=== PATIENT | male | born 1965 | race Hispanic/Latino ===

== ENCOUNTER 2018-06-17 22:16 | Observation (INO) | payer BC, OTHER ==
[2018-06-17 23:11] LABS: Hemoglobin 13.8 g/dL (14.0-18.0); Mean Corpuscular HGB CONC 34.1 g/dL (32.0-36.0); Mean Corpuscular Hemoglobin 32.5 pg (27.0-31.0); Mean Corpuscular Volume 95.2 fL (78.0-98.0); Mean Platelet Volume 7.9 fL (7.4-10.4); Platelet Count 237 thou/uL (130-400); RBC Distribution Width 13.6 % (11.5-14.5); Red Blood Cell (RBC) Count 4.25 mill/uL (4.70-6.10)
[2018-06-17 23:27] LABS: Band 1 % (5-11); Lymphocytes 49 % (21-51); MDiff Complete? YES; Monocytes 3 % (0-10); Neutrophil 47 % (42-75); PLT Morphology Comment Appears Adequate; RBC Morphology Normal
[2018-06-17 23:42] LABS: CKMB 1.6 ng/mL (0-6.6); Troponin I 0.027 ng/mL (< 0.028)
[2018-06-18 00:06] LABS: Albumin 3.9 g/dL (3.5-5.0)
[2018-06-18 00:08] LABS: Calcium 9.3 mg/dL (7.8-10.44); Chloride 103 mmol/L (98-107); Potassium 3.5 mmol/L (3.5-5.1); Sodium 138 mmol/L (136-145)
[2018-06-18 00:09] LABS: Globulin 2.7 g/dL (2.4-3.5); Glucose 147 mg/dL (70-105); Protein, Total 6.6 g/dL (6.0-8.3)
[2018-06-18 00:10] LABS: Anion Gap 7 mmol/L (10-20); Carbon Dioxide 32 mmol/L (22-29)
[2018-06-18 00:11] LABS: Bilirubin, Total 0.6 mg/dL (0.2-1.2)
[2018-06-18 00:12] LABS: Alkaline Phosphatase 80 U/L (40-150); Calc. Creatinine Clearance 0 mL/min (70-130); Estimated GFR-MDRD 67
[2018-06-18 00:13] LABS: BUN (Urea Nitrogen) 25 mg/dL (8.4-25.7)
[2018-06-18 00:14] LABS: AST (SGOT) 12 U/L (5-34)
[2018-06-18 00:15] LABS: ALT (SGPT) 12 U/L (8-55); CK (CPK) 66 U/L (30-200); Lipase 62 U/L (8-78)
--- NOTE | 2018-06-18 00:21 | RAD ---
CHEST ONE VIEW: INDICATIONS: Hypertension. COMPARISON: 08/16/2014 FINDINGS: There is stable cardiomegaly. The lungs are clear. No pleural effusion or pneumothorax is evident. No acute osseous abnormality is evident. IMPRESSION: Stable cardiomegaly. POS: FABIOLA
[2018-06-18 02:39] LABS: Troponin I 0.034 ng/mL (< 0.028)
[2018-06-18] MEDS ORDERED: Ondansetron ODT 4 MG TAB SL PRN (02:48)
[2018-06-18] MEDS ORDERED: Ondansetron PF 4 MG/2 ML Vial IVP PRN ×2 (02:48→07:53)
[2018-06-18 04:08] VITALS: BMI 34.9
[2018-06-18] MEDS: Sodium Chloride 0.9% 1,000 ML IV SCH ×2 (04:47→16:32)
[2018-06-18 05:44] LABS: Troponin I 0.036 ng/mL (< 0.028)
[2018-06-18] MEDS ORDERED: Nitroglycerin 0.4 MG TAB (25 Tab Bottle) PO PRN (07:53)
[2018-06-18] MEDS ORDERED: hydrALAZINE 20 MG/ML VIAL SLOW IVP PRN (07:53)
[2018-06-18] MEDS ORDERED: Ondansetron ODT 4 MG TAB PO PRN (07:53)
[2018-06-18] MEDS ORDERED: Aspirin 325 mg Enteric Coated Tablet PO SCH (09:00)
[2018-06-18] MEDS: Amlodipine 5 MG TAB PO SCH (09:08)
[2018-06-18] MEDS: Aspirin 325 MG TAB PO SCH (09:08)
[2018-06-18] MEDS: Azithromycin 250 MG TAB PO SCH (09:09)
[2018-06-18] MEDS: Neomycin/Polymyxin/HC Otic Solution 10 ML BOT R EAR SCH ×3 (09:09→22:25)
[2018-06-18] MEDS: Atorvastatin Calcium 40 MG TAB PO SCH (09:09)
--- NOTE | 2018-06-18 09:14 | HP ---
PRIMARY CARE PHYSICIAN: Dr. Turner. CHIEF COMPLAINT: Chest pain. HISTORY OF PRESENT ILLNESS: Mr. Carlson is a pleasant 53-year-old gentleman that has a history of h ypertension and hypothyroidism. He also has a history of morbid obesity, and he says that he has los t about 100 or so pounds. He had been weighing about 390 and is now down to 250. He says that he jin d been on blood pressure medication when he was heavier, and says that since then he had been taken o ff of antihypertensives. He says, however, in the last couple of days he has noted some chest pain. He says that it was on the left side of his chest. It was nonradiating, it was sharp, and was mild about 2-3/10. He says that he checked his blood pressure during the time he was having the chest daiana n and noticed that his blood pressure was approximately 190/100, and as previously mentioned, he is n ot on blood pressure medicine currently. He had an episode last night that has concerned him. It jin ppened again while he was talking to his in the same location. There were no associated symptom s such as nausea, vomiting, or diaphoresis. He did notice that he felt like his heart was racing ernie or to this episode. He called EMS and they did note that his blood pressure was once again elevated and he was brought to the emergency room for further evaluation. Currently, the patient is chest daiana n free and does not feel any distress. When he was checked into the emergency room, his blood pressu re was 188/102. The patient denies any leg swelling. He denies any PND, no orthopnea. He says that he works where he does quite a bit of walking and has not had any difficulty with that. REVIEW OF SYSTEMS: All systems were reviewed and are negative except for that mentioned in the histo ry of present illness. PAST MEDICAL HISTORY: Significant for hypertension, hypothyroidism, and hyperlipidemia. PAST SURGICAL HISTORY: He has had a tonsillectomy as well as brain surgery and left knee surgery. ALLERGIES: No known drug allergies. SOCIAL HISTORY: He is . He has 3 sons. He is a nonsmoker and nondrinker. FAMILY HISTORY: Significant for his grandfather had a heart attack. MEDICATIONS: Include levothyroxine 100 mcg daily, aspirin 81 mg daily, and azithromycin or Z-Sreedhar, an d Lipitor 40 mg daily. PHYSICAL EXAMINATION: GENERAL: He is alert and oriented. He appears to be in no acute distress. He is well-developed and well-nourished. VITAL SIGNS: Blood pressure was 188/102. His heart rate is actually 59, respiratory rate is 18, tem perature is 97.6, O2 sat was 100% on room air. HEENT: His pupils are equal, round, and reactive. Extraocular muscles are intact. His sclerae are anicteric. Throat: There is no erythema, no exudates. NECK: No adenopathy, no bruits. No increase in jugular venous distention. LUNGS: Clear to auscultation. There is no wheezing, no rales, no rhonchi. CARDIOVASCULAR: He had a normal S1 and S2. I did not appreciate an S3 or S4. No murmurs, no clicks , no rubs, no gallops. ABDOMEN: Obese, it is soft, it is nontender, nondistended. Positive for bowel sounds. There was no rebound, no guarding, and no organomegaly. EXTREMITIES: There was no edema. No calf tenderness. There were no joint effusions and unusually h e is actually hairless on his lower extremities; however, he does have palpable dorsalis pedis pulses . NEUROLOGIC: His muscle strength is intact as well as cranial nerves II-XII are intact. SKIN AND INTEGUMENT: There are no skin changes. No rash, but again he is hairless. LABORATORY VALUES: On his EKG, and this is by my reading, is a sinus bradycardia. There are some vo ltage criteria for LVH. On his chest x-ray, there was some mild cardiomegaly, otherwise it is okay. LABORATORY RESULTS: White blood cell count 16, hemoglobin 13.8, hematocrit is 40.5, platelet count w as 237. Sodium was 138, potassium 3.5, chloride was 103, CO2 was 32, BUN of 25, creatinine 1.14, glu cose is 147. He had a lipase of 62. His troponin was 0.034. TSH was 7.35 and free T4 was 0.62. Al so, on his chest x-ray, he had some mild cardiomegaly. There was no evidence of any airspace disease and no effusion. This is by my reading as well. ASSESSMENT AND PLAN: This is a pleasant 53-year-old gentleman that presents to the emergency room wi th some atypical chest pain. He is also noted to have an extremely elevated blood pressure at home. He had noted it was 190 systolic. In the emergency room, it was 188/102. This is likely the etiolo gy of his chest pain. He is likely having some evidence of hypertensive urgency. In review of the suzy lauri's records, he was here in 2013, and at that time, he had had some similar complaints and had h ad a stress test as well as an echocardiogram. The stress test was negative and his echo showed a no rmal ejection fraction and he did have some mild left ventricular hypertrophy. Given that it has bee n over 4 years, we will go ahead and place him on observation for evaluation. Therefore for: 1. Chest pain, I suspect this is due to hypertensive urgency. However, we will go ahead and continu e to trend his cardiac enzymes and get a nuclear stress test as well as a lipid panel to further asse ss his risk for coronary artery disease. 2. Hypertensive urgency, we will need to start him on antihypertensive medications. I have already stressed that he will need to follow up with his primary care physician and get this checked and medi cations adjusted as needed. 3. Hypothyroidism. He admits that he has not been taking his levothyroxine regularly. His TSH is e levated and free T4 is low. We will go ahead and restart him on his levothyroxine.
[2018-06-18] MEDS: Nitroglycerin 2% Ointment 1 INCH/1 GM Packet TOP SCH ×2 (15:06→22:27)
--- NOTE | 2018-06-18 15:54 | NM ---
MYOCARDIAL PERFUSION EVALUATION: INDICATION: History of chest pain. RADIOPHARMACEUTICAL: 29.7 mCi Technetium 99m sestamibi IV with stress and 10.10 mCi Technetium 99m sestamibi IV with rest. COMPARISON: Prior exam dated 08/15/2014. FINDINGS: When comparing the rest and stress images, no definite reversible myocardial ischemia is demonstrated . There is prominent left ventricular dilatation seen on both the rest and stress images. There is diminished LVEF of 42%, which has declined from the prior in 2013 where it was 65%. There is normal w all thickening with diffuse hypokinesis. IMPRESSION: 1. No scintigraphic evidence to suggest reversible myocardial ischemia. 2. Worsening left ventricular dilatation with diminished left ventricular ejection fraction when com pared to the prior in 2013. The estimated left ventricular ejection fraction is now 42%. 3. Wall thickening appeared within normal limits. There was diffuse hypokinesis involving the left ventricle. POS: AUSTEN
[2018-06-18] MEDS: Mometasone 200 MCG HFA INHALER INH SCH (18:55)
[2018-06-19] MEDS: Levothyroxine Sodium 100 MCG TAB PO SCH (04:35)
[2018-06-19] MEDS: Nitroglycerin 2% Ointment 1 INCH/1 GM Packet TOP SCH ×2 (06:27→15:29)
--- NOTE | 2018-06-19 08:41 | PDOC.PN ---
- Subjective Encounter Start Date: 06/19/18 Encounter Start Time: 08:39 Mr. Carlson was seen today in follow-up of chest pain. He does not have any complaints today. He denies shortness of breath. - Objective Resuscitation Status: Resuscitation Status FULL:Full Resuscitation MAR Reviewed: Yes Vital Signs & Weight: Vital Signs (12 hours) Temp Pulse Resp BP BP Pulse Ox 06/19/18 07:13 97.9 F 51 L 20 167/82 H 98 06/19/18 04:34 97.5 F L 49 L 12 161/87 H 95 06/19/18 00:28 54 L 144/82 H 06/18/18 23:19 99.1 F 53 L 20 173/83 H 95 Weight Weight 250 lb 12.8 oz I&O: 06/18/18 06/19/18 06/20/18 06:59 06:59 06:59 Intake Total 122 480 Output Total 0 650 Balance 122 -170 Result Diagrams: 06/17/18 22:59 06/17/18 23:44 Phys Exam - Physical Examination HEENT: PERRLA Respiratory: no wheezing, no rales, no rhonchi, clear to auscultation bilateral Cardiovascular: RRR, no significant murmur, no rub + S4 Gastrointestinal: soft, non-tender, no distention, positive bowel sounds Musculoskeletal: no edema Dx/Plan (1) Chest pain Code(s): R07.9 - CHEST PAIN, UNSPECIFIED Status: Acute (2) Hypertensive urgency Code(s): I16.0 - HYPERTENSIVE URGENCY Status: Chronic (3) Acute systolic heart failure Code(s): I50.21 - ACUTE SYSTOLIC (CONGESTIVE) HEART FAILURE Status: Acute (4) Hypothyroidism Code(s): E03.9 - HYPOTHYROIDISM, UNSPECIFIED Status: Chronic - Plan * Chest Pain- likely due to Hypertensive Urgency * Hypertensive Urgency- blood pressure is still not controlled- will add Amlodipine * Acute systolic heart failure- this may be due to long-standing hypertension- but can not be sure he doesn't have ischemic heart disease- will consult Cardiology * Hypothyroidism- re-start Levothyroxin- He has been non-compliant
[2018-06-19] MEDS: Amlodipine 5 MG TAB PO SCH (08:51)
[2018-06-19] MEDS: Azithromycin 250 MG TAB PO SCH (08:51)
[2018-06-19] MEDS: Atorvastatin Calcium 40 MG TAB PO SCH (08:51)
[2018-06-19] MEDS: Aspirin 325 MG TAB PO SCH (08:51)
[2018-06-19] MEDS: Neomycin/Polymyxin/HC Otic Solution 10 ML BOT R EAR SCH ×3 (08:52→20:44)
[2018-06-19] MEDS: Acetaminophen 325 MG TAB PO PRN (08:55)
[2018-06-19] MEDS: Mometasone 200 MCG HFA INHALER INH SCH (19:42)
[2018-06-19] MEDS: Sacubitril 24.5 MG/Valsartan 25.5 MG TABLET PO SCH (20:43)
[2018-06-19] MEDS ORDERED: Atorvastatin Calcium 40 MG TAB PO SCH (21:00)
--- NOTE | 2018-06-19 23:02 | CON ---
DATE OF CONSULTATION: 06/19/2018 HISTORY: Edwin Carlson is a 53-year-old male that was evaluated in the hospital in October,. At that time, he did have sharp left-sided chest pain lasting 1-2 seconds. He underwent adenosine Cardiolite testing, which revealed no evidence of ischemia. There was suggestion of scarring of the apex and ejection fraction was 51%. I have not seen him since that time. In July 2014, he again underwent Lexiscan Cardiolite testing for shortness of breath and left arm numbness. This revealed no evidence of ischemia and an ejection fraction of 65%. Echocardiogram at that time also revealed ejection fraction of 50-55%. He had been on blood pressure medicines; however, he has lost weight from 390 down to about 250. Apparently 3 years ago, his blood pressure medicines were discontinued. He has not really watched his blood pressure since that time. Over the last 2 days, he has had left-sided chest discomfort. This sounds similar to what he had in 2007. It is located on the left side of his chest, very sharp stabbing pain lasting 1-2 seconds. Several minutes later would repeat and then 1 hour later, he had another 2 episodes. His blood pressure was high when he came to the emergency room, it was 190/100. Cardiac enzymes were unremarkable. He underwent Cardiolite testing, which revealed no evidence of ischemia or fixed defect; however, ejection fraction was 42% with diffuse hypokinesis. There was normal myocardial thickening. I ordered an echocardiogram; however, this has not been performed at this time. He does state that he has noted some exertional dyspnea and at one time on a trip, he had lower extremity edema. Also, over the past month, he has noted 2 episodes of PND where he would have to get up out of bed to catch his breath. PAST MEDICAL HISTORY: Hypertension, hypothyroidism, hyperlipidemia. OPERATIONS: Tonsillectomy. He also underwent resection of supposed pituitary tumor; however, in looking in the computer, there is no final pathology as it was sent out. The states that it was only found to be inflammation and not a tumor. He also has had left knee surgery. MEDICATIONS: Azithromycin 250 daily, aspirin 81 daily, atorvastatin 40 daily, Flovent 50 mcg t.i.d., Synthroid 100 mcg daily, Cortisporin otic solution t.i.d. ALLERGIES: None. SOCIAL HISTORY: Smoked 3 packs per day, but stopped 25 years ago. He drank more than a case of beer per day but stopped that 25 years ago. 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 FAMILY HISTORY: Negative for coronary artery disease in the immediate family. REVIEW OF SYSTEMS: Twelve-point review of systems otherwise unremarkable. PHYSICAL EXAMINATION: VITAL SIGNS: 148/74, pulse of 57. He has been bradycardic at times with heart rates in the low 50s and 49 on one occasion. HEENT: PERRL. NECK: Supple. CHEST: Clear. CARDIAC: S1 and S2 are normal without any S3, S4, or murmurs. ABDOMEN: Obese. Normal bowel sounds, no tenderness, no organomegaly. EXTREMITIES: Revealed no clubbing, cyanosis, or edema. NEUROLOGIC: Grossly intact. SKIN: Warm and dry. MUSCULOSKELETAL: Revealed no palpable chest wall tenderness. LABORATORY DATA: EKG revealed sinus bradycardia with rate of 54 per minute, right bundle branch block, evidence for left ventricular hypertrophy. Cardiolite findings as noted above. White count 16,000, hemoglobin 13.8, hematocrit 40.5, platelets 237,000. Sodium 138, potassium 3.5, chloride 103, carbon dioxide 32, BUN 25, creatinine 1.14. Troponin I 0.036. Cholesterol 142 , triglycerides 37, HDL 72, LDL 63. TSH is elevated at 7.3582. Free T4 is low at 0.62. IMPRESSION: 1. Atypical noncardiac chest pain. 2. No evidence of ischemia on Cardiolite testing. 3. Evidence of drop in ejection fraction, probably related to untreated hypertension for several years. This also may be the cause for his 2 episodes of PND, exertional dyspnea and one episode of leg edema. 4. Hypertension, untreated for 3 years. 5. Hypercholesterolemia, under good control. 6. Former smoker. 7. History of resection of a portion of pituitary, unknown pathology. PLAN: Echocardiogram will be performed to get a better assessment of his left ventricular function. Ideally, it would be best to place him on carvedilol; however, with his heart rate in the 40s and 50s, he probably would not tolerate that. Therefore, with his supposed left ventricular dysfunction, I would start him on Entresto 24.5/25.5 b.i.d. Once echo has been performed and his blood pressure is controlled, he may be discharged. [facility]OSPITALDavid
[2018-06-20] MEDS: Acetaminophen 325 MG TAB PO PRN (01:46)
[2018-06-20] MEDS ORDERED: Bisacodyl 5 MG TAB PO PRN (05:02)
[2018-06-20] MEDS: Levothyroxine Sodium 100 MCG TAB PO SCH (05:11)
[2018-06-20 08:06] VITALS: TEMP 97.6
[2018-06-20] MEDS ORDERED: Furosemide 20 MG TAB PO SCH (09:00)
[2018-06-20] MEDS: Azithromycin 250 MG TAB PO SCH (09:18)
[2018-06-20] MEDS: Aspirin 325 MG TAB PO SCH (09:18)
[2018-06-20] MEDS: Neomycin/Polymyxin/HC Otic Solution 10 ML BOT R EAR SCH (09:19)
[2018-06-20] MEDS: Sacubitril 24.5 MG/Valsartan 25.5 MG TABLET PO SCH (09:22)
[2018-06-20 10:52] VITALS: BP 104/62
--- NOTE | 2018-06-20 11:24 | PDOC.PN ---
- Subjective Encounter Start Date: 06/20/18 Encounter Start Time: 11:22 Mr. Carlson was seen today in follow-up of Hypertensive urgency. He is feeling better. He denies any chest pain and he is breathing better. - Objective Resuscitation Status: Resuscitation Status FULL:Full Resuscitation MAR Reviewed: Yes Vital Signs & Weight: Vital Signs (12 hours) Temp Pulse Resp BP BP BP Pulse Ox 06/20/18 10:51 73 115/77 104/62 06/20/18 10:50 58 L 18 113/74 06/20/18 08:00 97.6 F 43 L 20 153/79 H 95 06/20/18 04:07 97.5 F L 62 16 133/77 94 L 06/19/18 23:26 98.4 F 54 L 16 131/75 95 Weight Weight 237 lb 1.6 oz I&O: 06/19/18 06/20/18 06/21/18 06:59 06:59 06:59 Intake Total 480 1320 240 Output Total 650 3545 900 Balance -170 -1555 -660 Result Diagrams: 06/17/18 22:59 06/17/18 23:44 Phys Exam - Physical Examination HEENT: PERRLA Respiratory: no wheezing, no rales, no rhonchi, clear to auscultation bilateral Cardiovascular: RRR, no significant murmur, no rub Gastrointestinal: soft, non-tender, no distention, positive bowel sounds Musculoskeletal: no edema Dx/Plan (1) Hypertensive urgency Code(s): I16.0 - HYPERTENSIVE URGENCY Status: Chronic (2) Chest pain Code(s): R07.9 - CHEST PAIN, UNSPECIFIED Status: Acute (3) Acute systolic heart failure Code(s): I50.21 - ACUTE SYSTOLIC (CONGESTIVE) HEART FAILURE Status: Acute (4) Hypothyroidism Code(s): E03.9 - HYPOTHYROIDISM, UNSPECIFIED Status: Chronic - Plan * Hypertensive Urgency- His medications have been adjusted * CHF- compensated. He will be discharged on Entresto and Lasix * Stable for discharge home.
--- NOTE | 2018-06-20 12:56 | DIS ---
DATE OF ADMISSION: 06/18/2018 DATE OF DISCHARGE: 06/20/2018 PRIMARY CARE PHYSICIAN: Jovi Turner M.D. DISCHARGE DISPOSITION: Home. PRIMARY DISCHARGE DIAGNOSES: 1. Hypertensive urgency. 2. Chronic systolic heart failure. 3. Hypertensive heart disease. 4. Hypothyroidism. 5. Hyperlipidemia. DISCHARGE MEDICATIONS: The patient was placed on Entresto 24.5/25.5 one tablet twice a day, Lasix 2 0 mg daily, levothyroxine 100 mcg daily, Flovent Diskus 50 mcg inhaled daily, atorvastatin 40 mg nathan y, aspirin 81 mg daily, azithromycin 250 mg daily. PROCEDURES DONE DURING ADMISSION: The patient had a nuclear stress test showing no reversible ischem ia. There was some suggestion of worsening left ventricular dilatation with an ejection fraction was slightly diminished. There was some diffuse hypokinesis involving the left ventricle. The patient had an echocardiogram in which the ejection fraction was estimated at 40%-45% and mildly depressed le ft ventricular function. CODE STATUS: FULL CODE. ALLERGIES: No known drug allergies. HOSPITAL COURSE: Mr. Carlson is a pleasant 53-year-old gentleman who presented to the emergency geovanna complaining of chest pain. He also felt like he was having some palpitations as well. He had no s ymptoms such as PND, orthopnea or dyspnea on exertion. He was admitted and it was noted that his blo od pressure was extremely high. The chest pain was felt to be related to hypertensive urgency. He u nderwent a nuclear stress test which did not show any reversible ischemia, but did show some decrease in his left ventricular function. For this reason, Cardiology was consulted and it was felt that th is was likely due to hypertensive heart disease. His blood pressure would need to be better managed. He was placed on Entresto as well as Lasix. A beta blockers contraindicated due to his bradycardia . His heart rate was ranging as low as the mid 40s. He was stressed on the importance of being comp liant with his blood pressure medications as well as blood pressure checks as well as diet and exerci se. He is to follow up with his primary care physician in approximately one week and also with Cardi ology as instructed.
--- NOTE | 2018-06-23 11:36 | EKG ---
Test Reason : Blood Pressure : / mmHG Vent. Rate : 054 BPM Atrial Rate : 054 BPM P-R Int : 192 ms QRS Dur : 132 ms QT Int : 434 ms P-R-T Axes : 033 -22 032 degrees QTc Int : 411 ms Sinus bradycardia Right bundle branch block Left ventricular hypertrophy with repolarization abnormality Abnormal ECG Confirmed by KATIE SMITH DO ([id number]), film editor MARY STANFORD ([id number]) on 06/23/2018 11:35:36 AM Referred By: Confirmed By:KATIE SMITH DO
== END 2018-06-20 14:44 | disposition home or self-care (01) ==
LOC: ERS 22:16 → 2SW 06-18 01:48
PROVIDERS: ADMIT Internal Medicine; ATTEND Internal Medicine
DX: I16.0 Hypertensive urgency (principal); I11.0 Hypertensive heart disease with heart failure; I50.23 Acute on chronic systolic (congestive) heart failure; E03.9 Hypothyroidism, unspecified; E78.5 Hyperlipidemia, unspecified; Z79.82 Long term (current) use of aspirin; Z79.899 Other long term (current) drug therapy; Z87.891 Personal history of nicotine dependence
CPT/HCPCS: 36415; 71045; 78452; 80053; 80061; 82553; 83690; 83880; 84439; 84443; 84484; 85025; 93005; 93017; 93306; 94664; 94760; 96360; 96361; A9500; G0378; J0153

== ENCOUNTER 2018-12-22 13:54 | Emergency (ER) | payer BC ==
[2018-12-22 17:07] LABS: #Basophils 0.1 thou/uL (0.0-0.2); #Eosinphils 0.1 thou/uL (0.0-0.7); #Lymphocytes 3.3 thou/uL (1.20-3.40); #Monocytes 0.4 thou/uL (0.11-0.59); #Neutrophils 5.4 thou/uL (1.40-6.50); %Basophils 1.6 % (0.0-1.0); %Eosinophils 1.2 % (0.0-10.0); %Lymphocytes 35.4 % (21.0-51.0); %Monocytes 4.6 % (0.0-10.0); %Neutrophils 57.2 % (42.0-75.0); Hemoglobin 13.2 g/dL (14.0-18.0); Mean Corpuscular HGB CONC 32.4 g/dL (32.0-36.0); Mean Corpuscular Hemoglobin 30.3 pg (27.0-31.0); Mean Corpuscular Volume 93.6 fL (78.0-98.0); Mean Platelet Volume 7.2 fL (7.4-10.4); Platelet Count 238 thou/uL (130-400); RBC Distribution Width 12.4 % (11.5-14.5); Red Blood Cell (RBC) Count 4.35 mill/uL (4.70-6.10); White Blood Cell (WBC) Count 9.4 thou/uL (4.8-10.8)
[2018-12-22 17:21] LABS: ALT (SGPT) 10 U/L (8-55); AST (SGOT) 16 U/L (5-34); Albumin 4.6 g/dL (3.5-5.0); Alkaline Phosphatase 70 U/L (40-150); Anion Gap 9 mmol/L (10-20); BUN (Urea Nitrogen) 18 mg/dL (8.4-25.7); Bilirubin, Total 0.8 mg/dL (0.2-1.2); Calc. Creatinine Clearance 0 mL/min (70-130); Calcium 10.6 mg/dL (7.8-10.44); Carbon Dioxide 29 mmol/L (22-29); Chloride 104 mmol/L (98-107); Estimated GFR-MDRD 83; Globulin 2.8 g/dL (2.4-3.5); Glucose 95 mg/dL (70-105); Potassium 4.1 mmol/L (3.5-5.1); Protein, Total 7.4 g/dL (6.0-8.3); Sodium 138 mmol/L (136-145)
[2018-12-22] MEDS ORDERED: Acetaminophen 500 MG TAB ONE (18:29)
--- NOTE | 2018-12-22 19:50 | CT ---
CT BRAIN WITHOUT CONTRAST: HISTORY:Foreign body sensation in the head. Patient thinks he has worms in his head, mental status ch anges, altered mental status. COMPARISON:08/24/2014 FINDINGS: There is encephalomalacia in the left cerebellar hemisphere consistent with old infarction which was not seen on the previous study. No evidence of acute infarct, hemorrhage, midline shift or abnormal extra-axial fluid collections is seen. The ventricular size is appropriate and the basilar cisterns are patent. The bony calvarium is intact. The visualized paranasal sinuses and mastoid air cells are well aerated. IMPRESSION: No CT evidence of acute intracranial process.
== END 2018-12-22 20:10 | disposition home or self-care (01) ==
LOC: ERS 13:54
DX: R51 Headache (principal); H92.01 Otalgia, right ear; E78.00 Pure hypercholesterolemia, unspecified; E03.9 Hypothyroidism, unspecified; Z86.73 Personal history of transient ischemic attack (TIA), and cerebral infarction without residual deficits; Z79.899 Other long term (current) drug therapy
CPT/HCPCS: 36415; 70450; 80053; 85025

== ENCOUNTER 2019-12-22 22:28 | Observation (INO) | payer BC ==
--- NOTE | 2019-12-22 22:59 | RAD ---
Exam: Chest one view HISTORY:Intermittent chest pain. Comparison: 06/17/2018 FINDINGS: Cardiac silhouette:Cardiomegaly. Aorta: Unremarkable Pulmonary vessels: Prominent Costophrenic angles: Clear LUNGS: Patchy interstitial opacities. Pneumothorax: None Osseous abnormalities: None IMPRESSION: 1. Possible congestive heart failure.
[2019-12-22 23:02] LABS: #Basophils 0.1 thou/uL (0.0-0.2); #Eosinphils 0.4 thou/uL (0.0-0.7); #Lymphocytes 2.9 thou/uL (1.20-3.40); #Monocytes 0.5 thou/uL (0.11-0.59); #Neutrophils 3.3 thou/uL (1.40-6.50); %Basophils 1.3 % (0.0-1.0); %Eosinophils 5.1 % (0.0-10.0); %Lymphocytes 40.7 % (21.0-51.0); %Monocytes 6.6 % (0.0-10.0); %Neutrophils 46.3 % (42.0-75.0); Hemoglobin 13.6 g/dL (14.0-18.0); Mean Corpuscular HGB CONC 33.8 g/dL (32.0-36.0); Mean Corpuscular Hemoglobin 31.9 pg (27.0-31.0); Mean Corpuscular Volume 94.3 fL (78.0-98.0); Mean Platelet Volume 7.7 fL (7.4-10.4); Platelet Count 240 thou/uL (130-400); RBC Distribution Width 12.5 % (11.5-14.5); Red Blood Cell (RBC) Count 4.27 mill/uL (4.70-6.10)
[2019-12-22] MEDS ORDERED: Aspirin Chewable 81 MG TAB ONE (23:13)
[2019-12-22 23:19] LABS: ALT (SGPT) 13 U/L (8-55); AST (SGOT) 22 U/L (5-34); Albumin 3.9 g/dL (3.5-5.0); Alkaline Phosphatase 65 U/L (40-110); Anion Gap 14 mmol/L (10-20); BUN (Urea Nitrogen) 14 mg/dL (8.4-25.7); Bilirubin, Total 0.4 mg/dL (0.2-1.2); Calc. Creatinine Clearance 0 mL/min (70-130); Calcium 10.2 mg/dL (7.8-10.44); Carbon Dioxide 24 mmol/L (22-29); Chloride 104 mmol/L (98-107); Estimated GFR-MDRD 84; Globulin 2.7 g/dL (2.4-3.5); Glucose 134 mg/dL (70-105); Lipase 27 U/L (8-78); Potassium 3.7 mmol/L (3.5-5.1); Protein, Total 6.6 g/dL (6.0-8.3); Sodium 138 mmol/L (136-145)
[2019-12-23 00:06] LABS: CKMB 0.8 ng/mL (0-6.6)
[2019-12-23] MEDS ORDERED: Acetaminophen 325 MG TAB PO PRN ×2 (01:11→01:50)
[2019-12-23] MEDS ORDERED: Ondansetron ODT 4 MG TAB SL PRN (01:11)
[2019-12-23] MEDS ORDERED: Ondansetron PF 4 MG/2 ML Vial IVP PRN (01:11)
[2019-12-23] MEDS ORDERED: Senokot S 8.6-50 MG TAB PO PRN (01:50)
[2019-12-23] MEDS ORDERED: HYDROcodone/Acetaminophen 5/325 mg Tablet PO PRN ×2 (01:50)
[2019-12-23 02:18] LABS: Troponin I 0.099 ng/mL (< 0.028)
--- NOTE | 2019-12-23 03:37 | HP ---
PRIMARY CARE PHYSICIAN: Dr. Turner. CHIEF COMPLAINT: Chest pain. HISTORY OF PRESENT ILLNESS: Mr. Carlson is a very pleasant 54-year-old man. He has had a 1 to 2-week history of intermittent chest pain, left-sided, sharp with no radiation. He denies any shortness of breath or any diaphoresis. He reported he took his 81 mg aspirin and his CHF medications routinely without any relief. He has a history of hypothyroidism, hypertension, congestive heart failure and takes Lasix every day. He denies any factors, which exacerbate or relieve the pain and so his brought him to the emergency room today. PAST MEDICAL HISTORY: Pertinent for hypertension, high cholesterol, hypothyroidism, and had a CVA in the past. PAST SURGICAL HISTORY: Tonsillectomy, surgery to the brain, and left knee surgery. PSYCHIATRIC HISTORY: None. SOCIAL HISTORY: He is a former tobacco smoker. Denies any alcohol use or drug use. Lives at home with his family. KNOWN ALLERGIES: Azithromycin. CURRENT MEDICATIONS: 1. Levothyroxine 100 mcg p.o. daily. 2. Furosemide 20 mg p.o. once a day. 3. Docusate sodium 100 mg p.o. once a day. 4. Entresto 24/26 p.o. once a day. PHYSICAL EXAMINATION: VITAL SIGNS: Blood pressure 144/97, pulse 65, respirations are 13, temperature is 98.5, and PO2 sats are 99% on room air. CONSTITUTIONAL: The patient is nontoxic appearing. He is alert and oriented to person, place, and time. HEENT: Head is atraumatic and normocephalic. Eyes, pupils are equally round and reactive. Eyelids are normal to inspection. ENT; mouth exam is normal. Mucous membranes are moist. NECK: Normal range of motion. Trachea is midline. RESPIRATORY/CHEST: Breath sounds are clear. Chest expansion is equal. CARDIOVASCULAR: Regular heart rate and rhythm. Heart sounds are normal. ABDOMEN: Nontender. Bowel sounds are heard. BACK: Normal range of motion. No tenderness. EXTREMITIES: Upper extremities; normal range of motion. Sensation intact. Radial pulses are normal. Lower extremities; normal range of motion. Motor strength is normal. Pedal pulses are normal. There is +1 edema to bilateral lower extremities. NEURO: The patient is oriented to person, place, and time. He is, however, hard of hearing, especially on the right side and slow to respond, although he does respond and answer questions appropriately. SKIN: Warm and dry. Normal in color. PSYCH: Has a normal affect. LABORATORY DATA: EKG in the emergency room shows a normal sinus rhythm, beats per minute 74, left axis deviation, and he has a right bundle branch block. Glucose 134. First troponin in the indeterminate range of 0.119, second at 0.099. BNP is 18.8. White blood cell count 7, hemoglobin 13.6, hematocrit is 40.2, and platelet count is 240. IMAGING DATA: Chest x-ray showed some patchy interstitial opacities, possible congestive heart failure. ASSESSMENT AND PLAN: 1. Chest pain with troponins that are trending downward. Order a stress test in the a.m. We will recheck a TSH, free T4, and fasting lipids. Continue to trend the troponins. 2. History of hypothyroidism. See #1. 3. History of congestive heart failure. The last echocardiogram in 2018 showed an EF of between 45% to 55%. The patient is on Entresto. We will restart this home medication. 4. Deep venous thrombosis and gastrointestinal prophylaxis started. 5. Hospital course is dependent on clinical findings. Job ID: [id number]
[2019-12-23 05:13] LABS: #Basophils 0.1 thou/uL (0.0-0.2); #Eosinphils 0.4 thou/uL (0.0-0.7); #Lymphocytes 2.8 thou/uL (1.20-3.40); #Monocytes 0.4 thou/uL (0.11-0.59); #Neutrophils 2.7 thou/uL (1.40-6.50); %Basophils 1.6 % (0.0-1.0); %Eosinophils 5.7 % (0.0-10.0); %Lymphocytes 44.3 % (21.0-51.0); %Monocytes 5.8 % (0.0-10.0); %Neutrophils 42.7 % (42.0-75.0); Hemoglobin 13.4 g/dL (14.0-18.0); Mean Corpuscular HGB CONC 33.3 g/dL (32.0-36.0); Mean Corpuscular Hemoglobin 31.8 pg (27.0-31.0); Mean Corpuscular Volume 95.5 fL (78.0-98.0); Platelet Count 230 thou/uL (130-400); RBC Distribution Width 12.5 % (11.5-14.5); Red Blood Cell (RBC) Count 4.22 mill/uL (4.70-6.10); White Blood Cell (WBC) Count 6.3 thou/uL (4.8-10.8)
[2019-12-23 05:20] LABS: ALT (SGPT) 13 U/L (8-55); AST (SGOT) 20 U/L (5-34); Albumin 3.8 g/dL (3.5-5.0); Alkaline Phosphatase 65 U/L (40-110); Anion Gap 14 mmol/L (10-20); BUN (Urea Nitrogen) 12 mg/dL (8.4-25.7); Bilirubin, Total 0.4 mg/dL (0.2-1.2); Calc. Creatinine Clearance 159 mL/min (70-130); Calcium 10.1 mg/dL (7.8-10.44); Carbon Dioxide 24 mmol/L (22-29); Cardiac Risk 3.5 (Less than 4.5); Chloride 105 mmol/L (98-107); Cholesterol 145 mg/dl (< 200 Desired); Estimated GFR-MDRD 85; Globulin 2.6 g/dL (2.4-3.5); Glucose 125 mg/dL (70-105); HDL Cholesterol 42 mg/dL (>60 Neg Risk); LDL Cholesterol, Calculated 66 mg/dL; Potassium 3.7 mmol/L (3.5-5.1); Protein, Total 6.4 g/dL (6.0-8.3); Sodium 139 mmol/L (136-145); Triglycerides 185 mg/dL (Less than 150)
[2019-12-23 05:26] LABS: Troponin I 0.116 ng/mL (< 0.028)
[2019-12-23 05:39] LABS: Free T4 (Free Thyroxine) 0.66 ng/dL (0.70-1.48); Thyroid Stimulating Hormone 4.1133 uIU/mL (0.35-4.94)
[2019-12-23] MEDS ORDERED: Aspirin 325 MG TAB PO SCH (09:00)
[2019-12-23] MEDS: Docusate 100 MG CAP PO SCH (09:13)
[2019-12-23] MEDS: Levothyroxine Sodium 100 MCG TAB PO SCH (09:13)
[2019-12-23] MEDS: Furosemide 20 MG/2 ML VIAL SLOW IVP SCH (09:13)
[2019-12-23] MEDS: Enoxaparin Sodium 40 MG/0.4 ML SYRINGE SC SCH (09:13)
[2019-12-23] MEDS: Famotidine 20 MG TAB PO SCH ×2 (09:14→20:39)
[2019-12-23] MEDS: Aspirin Chewable 81 MG TAB PO SCH (09:14)
[2019-12-23 09:49] LABS: Troponin I 0.115 ng/mL (< 0.028)
--- NOTE | 2019-12-23 13:40 | NM ---
EXAM: NM Cardiac Stress W EF WF PROVIDED CLINICAL HISTORY: Chest pain COMPARISON: 06/18/2018 FINDINGS: There is diminished uptake of radiotracer seen within the septum and anteroseptal wall with suggestio n of mild reversibility between the stress and resting acquisitions. Reversible defect is also seen within the septum and anteroseptal wall on quantitative analysis. There is mild diminished uptake of radiotracer in the inferior left ventricular wall which appears relatively fixed. A similar distribution inferior wall was noted on prior study in 2018. Gated images demonstrate global hypokine sis with mildly diminished thickening involving the septal wall. The calculated left ventricular ejection fraction is 45%. Left ventricular ejection fraction on prior study in 2018 was calculated at 42%. IMPRESSION: 1. Abnormal myocardial perfusion study with findings suggestive of mild reversible defect suggesting ischemia involving the septum and anteroseptal wall. 2. Global hypokinesis. 3. Calculated left ventricular ejection fraction of 45%. LVEF of 70 2018 was calculated at 42%.
--- NOTE | 2019-12-23 16:40 | PDOC.HOSPP ---
- Subjective Encounter Date: 12/23/19 Encounter Time: 16:38 Subjective: Mr. Carlson was seen today in follow-up of chest pain. He says the pain in his chest is fine now. He denies any shortness of breath. - Objective Vital Signs & Weight: Vital Signs (12 hours) Temp Pulse Pulse Pulse Resp BP BP 12/23/19 14:05 70 75 119/78 150/76 H 12/23/19 13:05 98.2 F 66 16 12/23/19 09:10 12/23/19 07:00 98.1 F 63 16 BP BP Pulse Ox 12/23/19 14:05 12/23/19 13:05 134/76 99 12/23/19 09:10 97 12/23/19 07:00 117/69 97 Weight Weight 279 lb 0.8 oz I&O: 12/22/19 12/23/19 12/24/19 06:59 06:59 06:59 Intake Total 50 Balance 50 Result Diagrams: 12/23/19 04:34 12/23/19 04:34 Hospitalist ROS - Medication Medications: Active Medications Generic Name Dose Route Start Last Admin Trade Name Orionq PRN Reason Stop Dose Admin Aspirin 81 mg 12/23/19 09:00 12/23/19 09:14 Aspirin Chewable PO 81 mg DAILY ARTURO Administration Docusate Sodium 100 mg 12/23/19 09:00 12/23/19 09:13 Colace PO 100 mg DAILY ARTURO Administration Enoxaparin Sodium 40 mg 12/23/19 09:00 12/23/19 09:13 Lovenox SC 40 mg 0900 ARTURO Administration Famotidine 20 mg 12/23/19 09:00 12/23/19 09:14 Pepcid PO 20 mg BID ARTURO Administration Furosemide 20 mg 12/23/19 09:00 12/23/19 09:13 Lasix SLOW IVP 20 mg DAILY ARTURO Administration Levothyroxine Sodium 100 mcg 12/23/19 06:00 12/23/19 09:13 Synthroid PO 100 mcg 0600 ARTURO Administration - Exam Eye: PERRL, anicteric sclera Heart: RRR, no murmur, no gallops, no rubs, normal peripheral pulses Respiratory: CTAB, no wheezes, no rales, no ronchi, normal chest expansion, no tachypnea, normal percussion Gastrointestinal: soft, non-tender, non-distended, normal bowel sounds, no palpable masses, no hepatomegaly Extremities: no cyanosis, 1+ LE edema Hosp A/P (1) Hypertension Code(s): I10 - ESSENTIAL (PRIMARY) HYPERTENSION Status: Chronic (2) Chest pain Code(s): R07.9 - CHEST PAIN, UNSPECIFIED Status: Chronic (3) Hypothyroidism Code(s): E03.9 - HYPOTHYROIDISM, UNSPECIFIED Status: Chronic (4) Chronic systolic heart failure Code(s): I50.22 - CHRONIC SYSTOLIC (CONGESTIVE) HEART FAILURE Status: Chronic - Plan * Chest pain- ? etiology- stress test results were noted * Will consult Cardiology for further evaluation * HTN- blood pressure is stable * Chronic systolic heart failure- compensated
[2019-12-24] MEDS: Levothyroxine Sodium 100 MCG TAB PO SCH (05:39)
[2019-12-24] MEDS: Enoxaparin Sodium 40 MG/0.4 ML SYRINGE SC SCH (09:43)
[2019-12-24] MEDS: Famotidine 20 MG TAB PO SCH ×2 (09:44→20:47)
[2019-12-24] MEDS: Aspirin Chewable 81 MG TAB PO SCH (09:45)
[2019-12-24] MEDS: Docusate 100 MG CAP PO SCH (09:45)
[2019-12-24] MEDS: Furosemide 20 MG/2 ML VIAL SLOW IVP SCH (09:45)
--- NOTE | 2019-12-24 12:23 | PDOC.HOSPP ---
- Subjective Encounter Date: 12/24/19 Encounter Time: 08:15 Subjective: Follow up with Mr. Carlson regarding his chest pain. States he has been pain free since yesterday in his chest but is having throat pain when he is lying down. - Objective Vital Signs & Weight: Vital Signs (12 hours) Temp Pulse Resp BP BP Pulse Ox 12/24/19 08:00 97.9 F 58 L 16 127/70 97 12/24/19 04:54 97.9 F 62 14 135/70 Weight Weight 278 lb 6.4 oz I&O: 12/23/19 12/24/19 12/25/19 06:59 06:59 06:59 Intake Total 50 1340 Output Total 400 Balance 50 940 Result Diagrams: 12/23/19 04:34 12/23/19 04:34 Hospitalist ROS - Medication Medications: Active Medications Generic Name Dose Route Start Last Admin Trade Name Freq PRN Reason Stop Dose Admin Aspirin 81 mg 12/23/19 09:00 12/24/19 09:45 Aspirin Chewable PO 81 mg DAILY ARTURO Administration Docusate Sodium 100 mg 12/23/19 09:00 12/24/19 09:45 Colace PO 100 mg DAILY ARTURO Administration Enoxaparin Sodium 40 mg 12/23/19 09:00 12/24/19 09:43 Lovenox SC 40 mg 0900 ARTURO Administration Famotidine 20 mg 12/23/19 09:00 12/24/19 09:44 Pepcid PO 20 mg BID ARTURO Administration Furosemide 20 mg 12/23/19 09:00 12/24/19 09:45 Lasix SLOW IVP 20 mg DAILY ARTURO Administration Levothyroxine Sodium 100 mcg 12/23/19 06:00 12/24/19 05:39 Synthroid PO 100 mcg 0600 ARTURO Administration Pantoprazole Sodium 40 mg 12/24/19 09:00 12/24/19 09:45 Protonix PO 40 mg DAILY ARTURO Administration Sacubitril/Valsartan 0.5 tab 12/24/19 09:00 12/24/19 09:43 Entresto 24 Mg-26 Mg Tablet PO 0.5 tab BID ARTURO Administration - Exam General Appearance: NAD, awake alert Eye: PERRL, anicteric sclera ENT: normocephalic atraumatic, no oropharyngeal lesions, moist mucosa Neck: supple, symmetric, no JVD, no lymphadenopathy Heart: RRR, no murmur, no gallops, no rubs, normal peripheral pulses Respiratory: CTAB, no wheezes, no rales, no ronchi Gastrointestinal: soft, non-tender, non-distended, normal bowel sounds Neurological: cranial nerve grossly intact, no focal deficits Musculoskeletal: normal tone Psychiatric: normal affect, A&O x 3 Hosp A/P (1) Chest pain Code(s): R07.9 - CHEST PAIN, UNSPECIFIED Status: Acute (2) Sore throat Code(s): J02.9 - ACUTE PHARYNGITIS, UNSPECIFIED Status: Acute (3) Chronic systolic heart failure Code(s): I50.22 - CHRONIC SYSTOLIC (CONGESTIVE) HEART FAILURE Status: Chronic (4) Hypertension Code(s): I10 - ESSENTIAL (PRIMARY) HYPERTENSION Status: Chronic (5) Hypothyroidism Code(s): E03.9 - HYPOTHYROIDISM, UNSPECIFIED Status: Chronic - Plan Chest Pain: Currently pain free, awaiting cardiology consult regarding abnormal stress test. Sore throat: ?GERD. Protonix started. HTN: Blood pressure is stable.
[2019-12-24] MEDS ORDERED: Communication Order-Pharmacy FS SCH (18:00)
--- NOTE | 2019-12-24 18:43 | CON ---
DATE OF CONSULTATION: HISTORY OF PRESENT ILLNESS: Edwin Carlson is a 54-year-old male, followed intermittently over the last 12 years. In 10/2007, he had sharp left- sided chest pain, lasting 1-2 seconds. He underwent adenosine Cardiolite testing, which revealed no evidence of ischemia. There was suggestion of scarring of the apex and ejection fraction was 51%. In 07/2014, he again underwent Lexiscan Cardiolite testing for shortness of breath and left arm numbness, which revealed no evidence of ischemia and ejection fraction of 65%. Echo at that time revealed ejection fraction of 50% to 55%. I did not see him from 10/2007 until he was hospitalized in 05/2018. He had been on blood pressure medications and he lost weight from 390 down to 250. In approximately 2014, his blood pressure medicines were discontinued, but he did not watch his blood pressure after that time. When he was hospitalized in 05/2018, he had left-sided chest discomfort, which sounds similar what he had in 2007. It is located in the left-sided chest, very sharp, stabbing pain, lasting 1 to 2 seconds. Several minutes later, this had repeated and then 1 hour later he had another 2 to 3 episodes. He came to the emergency room. His blood pressure was 190/100. Cardiac enzymes were unremarkable. He underwent Cardiolite testing, which revealed no evidence of ischemia or fixed defect. However, ejection fraction was 42% with diffuse hypokinesis. There was normal myocardial thickening. Echocardiogram at that time revealed ejection fraction of 40% to 45%. He was bradycardic during that admission and so was not placed on any beta blockers. He was discharged on Entresto as well as Lasix. He was seen in the office in 01/2019 and 07/2019. In general, no specific symptoms. He remained on furosemide and Entresto. He now presents complaining of one week of intermittent chest discomfort with 4 or 5 episodes per day. He has left-sided sharp pain without radiation. This will occur at rest or with exertion. This lasts approximately 30 seconds. His last echocardiogram was in 07/2019 and his ejection fraction had improved to 45% to 50%. Cardiac enzymes revealed troponin-I of 0.116. He underwent adenosine Cardiolite testing, which revealed findings suggestive of mild reversible defect involving the septum and anteroseptal wall, suggestive of ischemia. There was global hypokinesis with ejection fraction of 45%. PAST MEDICAL HISTORY: 1. Hypertension. 2. Hypercholesterolemia. 3. Hypothyroidism. 4. History of stroke in the past. OPERATIONS: 1. Tonsillectomy. 2. Left knee surgery. 3. He also underwent resection of a supposed pituitary tumor. However, in looking in the computer, there was no final pathology as it was sent out. The states that this was only found to be inflammatory in nature and not a tumor. MEDICATIONS: 1. Entresto one-half tablet b.i.d. 2. Furosemide 20 mg q.a.m. 3. Levothyroxine 100 mcg daily. 4. Aspirin 81 daily. 5. Colace 100 mg daily. ALLERGIES: AZITHROMYCIN. SOCIAL HISTORY: He smoked 3 packs per day, but stopped 27 years ago. He drank more than a case of beer per day, but also stopped that 27 years ago. 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 FAMILY HISTORY: Negative for coronary artery disease. REVIEW OF SYSTEMS: Ten-point review of systems is otherwise unremarkable. PHYSICAL EXAMINATION: VITAL SIGNS: Blood pressure 131/68 and pulse 67. HEENT: PERRL. NECK: Supple. CHEST: Clear. CARDIAC: S1 and S2 are normal without any S3, S4, or murmurs. Carotid upstrokes normal without bruits. ABDOMEN: Normal bowel sounds without tenderness or organomegaly. The abdomen is obese. EXTREMITIES: No clubbing, cyanosis, or edema. NEUROLOGIC: Grossly intact. SKIN: Warm and dry. LABORATORY DATA: EKG reveals normal sinus rhythm with right bundle-branch block. Cardiolite findings as noted above. Hemoglobin 13.4, hematocrit 40.3, white count 6300, and platelets 230,000. Sodium 139, potassium 3.7, chloride 105, carbon dioxide 24, BUN 12, and creatinine 0.92. Troponin-I of 0.116. Cholesterol 145, triglycerides 185, HDL 42, and LDL 66. TSH is normal and free T4 is 0.66, which is low. IMPRESSION: 1. Atypical chest discomfort, which is not exertion related, sharp in nature and only last 30 seconds. 2. Finding of septal and anteroseptal ischemia on Cardiolite. 3. Systolic heart failure with ejection fraction of 40% to 45% in the past. With being placed back on blood pressure medications with Entresto, his ejection fraction improved to 45% to 50% on most recent echo in 07/2019. 4. Hypertension, not treated for 3 years from 2014 to 2017. 5. Hypercholesterolemia, under good control except for the elevated triglycerides. 6. Former smoker. 7. History of resection of a portion of the pituitary, unknown pathology. 8. Obesity. PLAN: Situation was discussed with the patient. It is recommended that he undergo cardiac catheterization. Risks were discussed including , myocardial infarction, dye reaction, vascular injury, CVA, transfusion, limb loss, renal loss, etc. Also risks of intervention with PTCA and stent placement were discussed including , myocardial infarction, emergent CABG, restenosis, stent thrombosis, vessel perforation, etc. He has no upcoming surgical procedures. No history of GI bleeding. Drug-eluting stent will be placed if needed, requiring dual antiplatelet therapy for 1 year. This has been discussed with the patient. He is agreeable to proceed. Job ID: [id number] MTDD
[2019-12-25 05:26] VITALS: BMI 41.8
[2019-12-25] MEDS: Aspirin Chewable 81 MG TAB PO SCH (05:42)
[2019-12-25] MEDS: Famotidine 20 MG TAB PO SCH (05:42)
[2019-12-25] MEDS: Levothyroxine Sodium 100 MCG TAB PO SCH ×2 (05:42→06:38)
[2019-12-25] MEDS: Furosemide 20 MG/2 ML VIAL SLOW IVP SCH (05:43)
[2019-12-25] MEDS: Docusate 100 MG CAP PO SCH (05:43)
[2019-12-25] MEDS ORDERED: Sodium Chloride 0.9% 1,000 ML IV SCH ×2 (06:00→08:07)
[2019-12-25] MEDS ORDERED: Heparin 10,000 UNITS/1 ML VIAL ONE (06:24)
[2019-12-25] MEDS ORDERED: Midazolam HCl 2 mg/2 ml Vial ONE (07:04)
[2019-12-25] MEDS ORDERED: Fentanyl 100 MCG/2 ML VIAL ONE (07:04)
[2019-12-25] MEDS ORDERED: Bivalirudin 250 MG VIAL ONE (07:30)
[2019-12-25] MEDS ORDERED: Nitroglycerin 0.4 MG TAB (25 Tab Bottle) SL PRN (07:52)
[2019-12-25] MEDS ORDERED: Morphine 2 MG/ML SYRINGE SLOW IVP PRN (08:06)
[2019-12-25] MEDS ORDERED: Furosemide 20 MG TAB PO SCH (09:00)
[2019-12-25] MEDS ORDERED: Isosorbide Mononitrate (ER) 30 MG TAB PO SCH (09:00)
[2019-12-25] MEDS ORDERED: Morphine 2 MG/ML SYRINGE ONE (11:43)
[2019-12-25] MEDS ORDERED: Iopamidol 370 76% 100 ML VIAL ONE (12:12)
[2019-12-25] MEDS ORDERED: Iopamidol 370 76% 50 ML VIAL FS ONE (12:12)
--- NOTE | 2019-12-25 12:53 | RAD ---
LEFT ANKLE 3 VIEWS: HISTORY: Injury, left ankle pain. FINDINGS/IMPRESSION: The ankle mortise is maintained. No acute fracture or dislocation is seen. Plantar and posterior ca lcaneal spurs are present. POS: [facility]
--- NOTE | 2019-12-25 13:25 | EKG ---
Test Reason : CHEST PAIN Blood Pressure : / mmHG Vent. Rate : 074 BPM Atrial Rate : 074 BPM P-R Int : 160 ms QRS Dur : 132 ms QT Int : 448 ms P-R-T Axes : 041 -30 119 degrees QTc Int : 497 ms Normal sinus rhythm Left axis deviation Right bundle branch block Left ventricular hypertrophy with repolarization abnormality Abnormal ECG Confirmed by DRISS SERRANO ([id number]), editorial specialist MARIVEL DENT ([id number]) on 12/25/2019 1:25:38 PM Referred By: ZACH Confirmed By:DRISS SERRANO
--- NOTE | 2019-12-25 15:30 | PDOC.HOSPP ---
- Subjective Encounter Date: 12/25/19 Encounter Time: 14:30 Subjective: Mr. Carlson is being seen as a follow up for chest pain. He is currently on bed rest after his heart cath this am. He feels well and denies any chest pain or shortness of breath. He is drowsy currently but fully oriented. Mr. Carlson said he slipped this morning while in the shower and fell. He twisted his ankle and landed on his bottom, he did not hit his head. Xray completed while in PACU of ankle. No complaints of ankle pain at this time and has full ROM. States he has an outpatient MRI scheduled for tomorrow for headaches that he would like to be discharged before that time. - Objective Vital Signs & Weight: Vital Signs (12 hours) Temp Pulse Resp BP BP Pulse Ox 12/25/19 15:15 97.8 F 60 14 133/69 95 12/25/19 13:45 98.1 F 58 L 16 128/75 94 L Weight Weight 227 lb 11.2 oz I&O: 12/24/19 12/25/19 12/26/19 06:59 06:59 06:59 Intake Total 1340 650 Output Total 400 1760 Balance 940 -1110 Result Diagrams: 12/23/19 04:34 12/23/19 04:34 Hospitalist ROS - Medication Medications: Active Medications Generic Name Dose Route Start Last Admin Trade Name Freq PRN Reason Stop Dose Admin Aspirin 81 mg 12/23/19 09:00 12/25/19 05:42 Aspirin Chewable PO 81 mg DAILY ARTURO Administration Docusate Sodium 100 mg 12/23/19 09:00 12/25/19 05:43 Colace PO 100 mg DAILY ARTURO Administration Famotidine 20 mg 12/23/19 09:00 12/25/19 05:42 Pepcid PO 20 mg BID ARTURO Administration Furosemide 20 mg 12/25/19 09:00 12/25/19 09:00 Lasix PO Not Given DAILY ARTURO Isosorbide Mononitrate 30 mg 12/25/19 09:00 12/25/19 14:46 Imdur Er PO 30 mg DAILY ARTURO Administration Levothyroxine Sodium 100 mcg 12/23/19 06:00 12/25/19 06:38 Synthroid PO 100 mcg 0600 ARTURO Administration Pantoprazole Sodium 40 mg 12/24/19 09:00 12/25/19 05:43 Protonix PO 40 mg DAILY ARTURO Administration Sacubitril/Valsartan 0.5 tab 12/24/19 09:00 12/25/19 05:42 Entresto 24 Mg-26 Mg Tablet PO 0.5 tab BID ARTURO Administration - Exam General Appearance: NAD General - other findings: drowsy, alert ENT: moist mucosa Neck: supple, symmetric, no JVD, no lymphadenopathy Heart: RRR, no murmur, no gallops, normal peripheral pulses Respiratory: CTAB, no wheezes, no rales, no ronchi Gastrointestinal: soft, non-tender, non-distended, normal bowel sounds Skin - other findings: bilateral groin cath sites, dressing CDI Neurological: normal sensation to touch, no weakness, no focal deficits Musculoskeletal: normal tone Psychiatric: A&O x 3 Hosp A/P (1) Chest pain Code(s): R07.9 - CHEST PAIN, UNSPECIFIED Status: Acute (2) Chronic systolic heart failure Code(s): I50.22 - CHRONIC SYSTOLIC (CONGESTIVE) HEART FAILURE Status: Chronic (3) Hypertension Code(s): I10 - ESSENTIAL (PRIMARY) HYPERTENSION Status: Chronic (4) Hypothyroidism Code(s): E03.9 - HYPOTHYROIDISM, UNSPECIFIED Status: Chronic (5) Left ankle pain Code(s): M25.572 - PAIN IN LEFT ANKLE AND JOINTS OF LEFT FOOT Status: Acute - Plan Chest Pain: Currently pain free, post cardiac cath Sore throat: resolved at this time HTN: Blood pressure is stable. Ankle pain post fall: xray showed no fracture, no swelling noted at site, tender to touch, RICE Awaiting cardiology clearance post cath. Patient seen and examined and discussed with Taylor REESE. Mr. Carlson main concern is pain in his left ankle, after slipping in the bathroom. his ankle exam, there was no significant swelling or point tenderness , passive ROM intact, good distal pulses, no bruising or ecchymosis. X-ray was negative for fracture. Disposition will be as per Cardiology, and conservative management for the ankle sprain.
[2019-12-25 20:08] VITALS: BP 105/55; TEMP 98.5
[2019-12-25] MEDS ORDERED: Simvastatin 5 MG TAB PO SCH (21:00)
--- NOTE | 2019-12-26 15:17 | DIS ---
DATE OF ADMISSION: 12/23/2019 DATE OF DISCHARGE: 12/25/2019 DISCHARGE DISPOSITION AND FOLLOW UP: The patient was discharged home with followup with primary care physician within 7 days. INPATIENT CONSULTS: Cardiology consult with Dr. Fletcher. CLINICAL COURSE: The patient is a 54-year-old male who presented with a 1-2 week history of intermittent chest pain, left sided, sharp with no radiation. He denied any shortness of breath or diaphoresis. He was admitted to telemetry and monitored while in the hospital. A stress test was ordered and that was completed on 12/23/2019. That evening, the stress test came back abnormal and a cardiology consult was placed at that time. Cardiology visited with the patient and decided to do a cardiac catheterization during his hospital stay. The cardiac cath was completed on 12/25/2019 and it was decided to treat him medically with no further interventions. After bed rest was completed, Cardiology stated he was safe to be discharged from their standing. Today he denies chest pain or shortness of breath and voiced his readiness to go home. However, while here he did sustain a fall in the shower while getting ready for his heart cath where he injured his left ankle. An x-ray was completed while the patient was in PACU and it showed no fracture. Mr. Carlson is toll gate tender to touch, so can apply ice accordingly along with an PHIL bandage for compression and keep the left ankle elevated while at home. FINAL DIAGNOSES: Chest pain, chronic systolic heart failure, hypertension, hypothyroidism, and left ankle pain. DISCHARGE MEDICATIONS: New medications include: 1. Nitroglycerin 0.4 mg sublingual q. 5 minutes p.r.n. chest pain. 2. Isosorbide mononitrate or Imdur ER 30 mg p.o. daily. 3. Simvastatin 10 mg p.o. at bedtime Continue home medications. 4. Entresto 24.5/25.5 mg half tab p.o. twice a day. 5. Synthroid 100 mcg p.o. daily. 6. Lasix 20 mg p.o. daily. 7. Docusate sodium 100 mg p.o. daily. 8. Aspirin 81 mg daily. DISCHARGE INSTRUCTIONS: The patient was given post cath activity instructions and educated regarding his ankle including RICE protocol. Written information was provided regarding his new prescriptions. He is to follow up with his PCP within 1 week. TIME SPENT: Total time coordinating the discharge of this patient was 35 minutes. Job ID: [id number] MTDD
== END 2019-12-25 20:00 | disposition home or self-care (01) ==
LOC: ERS 22:28 → 2NO 12-23 00:24
PROVIDERS: ADMIT Internal Medicine; ATTEND Internal Medicine
PROC: 4A023N7 Measurement of Cardiac Sampling and Pressure, Left Heart, Percutaneous Approach (ICD-10-PCS; principal; 2019-12-25)
PROC: B2111ZZ Fluoroscopy of Multiple Coronary Arteries using Low Osmolar Contrast (ICD-10-PCS; 2019-12-25)
DX: R07.89 Other chest pain (principal); I25.10 Atherosclerotic heart disease of native coronary artery without angina pectoris; I11.0 Hypertensive heart disease with heart failure; I50.22 Chronic systolic (congestive) heart failure; E03.9 Hypothyroidism, unspecified; M25.572 Pain in left ankle and joints of left foot; E78.00 Pure hypercholesterolemia, unspecified; E66.9 Obesity, unspecified; Z68.34 Body mass index [BMI] 34.0-34.9, adult; Z79.82 Long term (current) use of aspirin; Z79.899 Other long term (current) drug therapy; Z87.891 Personal history of nicotine dependence; Z88.8 Allergy status to other drugs, medicaments and biological substances; Z88.1 Allergy status to other antibiotic agents
CPT/HCPCS: 36415; 37213; 71045; 76942; 78452; 80053; 80061; 82553; 83690; 83880; 84439; 84443; 84484; 85025; 85347; 93005; 93017; 93458; 93571; 94760; 96372; 96374; 96376; 99152; 99153; A9500; C1769; C1887; G0378; J0153; J0583; J1644; J1650; J1940; J2250; J2270; J3010; Q9967

== ENCOUNTER 2020-01-14 14:24 | Outpatient (CLI) | payer BC ==
--- NOTE | 2020-01-14 15:56 | CT ---
CT temporal bones noncontrast: 01/14/2020 HISTORY: 54-year-old male with "H 90.5 asymmetrical sensorineural hearing loss" FINDINGS: There is a somewhat large region of encephalomalacia and gliosis at the inferior portion of left cere bellar hemisphere with CSF filling the large defect. There is a tubular, folded foreign body in the left external auditory canal, located a distance of ap proximately 1.5 to 2 cm lateral to the tympanic membrane. No stenosis or mural thickening of either the right or left external auditory canals. Right external auditory canal is clear. Bilateral middle ear cavities and mastoid antra, are clear. Mild partial opacification of some of the right mastoid air cells. Most of the right mastoid air cells and most of the left mastoid air cells, are clear. Internal auditory canals, cochleae, vestibules, vestibular aqueducts, semicircular canals, bilateral ossicles, Facial nerve canals, carotid canals, and jugular bulbs, have normal morphology. No evidence of otosclerosis. No dehiscence of superior semicircular canals. No dehiscence of tegmen tympani. Scutum intact bilater ally. Mild to moderate circumferential mucosal thickening throughout sphenoid sinus. Absence of most of the septum between the left and right sphenoid air cells. High-grade degenerative changes at atlantoodontoid junction. IMPRESSION: 1. Foreign body in left external auditory canal. 2. Minimal right mastoid effusion. 3. Otherwise normal temporal bones. 4. Unusual appearance of sphenoid sinus and posterior ethmoid air cells, either developmental anomaly or postsurgical change. The former is favored. 5. Large old insult involving the left cerebellar hemisphere.
== END 2020-01-14 14:25 | disposition home or self-care (01) ==
LOC: SCSCT 14:24
PROVIDERS: ATTEND Student in an Organized Health Care Education/Training Program
DX: H90.5 Unspecified sensorineural hearing loss (principal); T16.2XXA Foreign body in left ear, initial encounter
CPT/HCPCS: 70480

== ENCOUNTER 2020-05-06 11:27 | Inpatient (IN) | payer BC, OTHER ==
[2020-05-06] MEDS ORDERED: Nitroglycerin 0.4 MG TAB 1 EACH ONE (12:19)
[2020-05-06 12:24] LABS: Hemoglobin 13.2 g/dL (14.0-18.0); Mean Corpuscular HGB CONC 34.5 g/dL (32.0-36.0); Mean Corpuscular Hemoglobin 31.5 pg (27.0-31.0); Mean Corpuscular Volume 91.4 fL (78.0-98.0); Mean Platelet Volume 8.3 fL (7.4-10.4); Platelet Count 176 thou/uL (130-400); RBC Distribution Width 12.6 % (11.5-14.5); Red Blood Cell (RBC) Count 4.19 mill/uL (4.70-6.10); White Blood Cell (WBC) Count 4.6 thou/uL (4.8-10.8)
--- NOTE | 2020-05-06 12:54 | RAD ---
Portable frontal chest radiograph: 05/06/2020 COMPARISON: 12/22/2019 HISTORY: Chest pain with difficulty breathing FINDINGS: No pneumothorax or pleural fluid. No focal consolidation or alveolar edema. Mild pulmonary vascular prominence and mild bibasilar interstitial prominence, similar when compared to prior imaging. IMPRESSION: No focal consolidation or alveolar edema.
[2020-05-06 13:05] LABS: Band 6 % (5-11); Eosinophils 2 % (0-10); Lymphocytes 38 % (21-51); MDiff Complete? YES; Monocytes 11 % (0-10); Neutrophil 41 % (42-75); RBC Morphology Normal
[2020-05-06 13:19] LABS: ALT (SGPT) 10 U/L (8-55); AST (SGOT) 30 U/L (5-34); Albumin 3.9 g/dL (3.5-5.0); Alkaline Phosphatase 80 U/L (40-110); Anion Gap 14 mmol/L (10-20); BUN (Urea Nitrogen) 14 mg/dL (8.4-25.7); Bilirubin, Total 0.7 mg/dL (0.2-1.2); CKMB 1.1 ng/mL (0-6.6); Calc. Creatinine Clearance 0 mL/min (70-130); Calcium 9.9 mg/dL (7.8-10.44); Carbon Dioxide 22 mmol/L (22-29); Chloride 104 mmol/L (98-107); Estimated GFR-MDRD Greater than 90; Globulin 3.2 g/dL (2.4-3.5); Glucose 102 mg/dL (70-105); Lipase 22 U/L (8-78); Potassium 4.4 mmol/L (3.5-5.1); Protein, Total 7.1 g/dL (6.0-8.3); Sodium 136 mmol/L (136-145)
[2020-05-06] MEDS ORDERED: Senokot S 8.6-50 MG TAB PO PRN (15:56)
[2020-05-06] MEDS ORDERED: Acetaminophen 325 MG TAB PO PRN (15:56)
[2020-05-06] MEDS ORDERED: Iopamidol-370 76% 500 ML 1 ML ONE (16:17)
[2020-05-06 16:48] LABS: Troponin I 0.122 ng/mL (< 0.028)
[2020-05-06 17:18] VITALS: BMI 29.9
[2020-05-06 18:56] LABS: Troponin I 0.105 ng/mL (< 0.028)
--- NOTE | 2020-05-06 19:19 | CT ---
CT ANGIOGRAM THORAX WITH CONTRAST: (CTA pulmonary angiogram) DATE: 05/06/2020 HISTORY: 54-year-old male with chest pain, dyspnea, and elevated d-dimer TECHNIQUE: IV injection of iodinated contrast. Scan acquisition timing attempted to coincide with iodinated contrast bolus reaching maximal density in pulmonary arteries. 3-D MIP reconstructions. FINDINGS: Diffuse, groundglass pulmonary densities throughout bilateral upper lobes, lower lobes, and the right middle lobe. No pulmonary thromboembolism identified. No thoracic aortic aneurysm or dissection. Nonspecific mild bilateral hilar and mild mediastinal lymphadenopathy. No pleural effusion, pneumothorax, or consolidation. No pericardial effusion. IMPRESSION: 1) diffuse groundglass densities throughout the lungs: Possibilities include pulmonary interstitial e candi versus viral pneumonia. Pulmonary interstitial edema is slightly favored. 2) no pulmonary thromboembolism identified.
--- NOTE | 2020-05-06 21:04 | HP ---
CHIEF COMPLAINT: Chest pain. HISTORY OF PRESENT ILLNESS: The patient is a 54-year-old male with past medical history of hypertension, hypercholesterolemia, hypothyroidism, and CVA in the past, who presents to the hospital with complaints of chest pain x1 day. The patient states that he was working outside. He was doing some head work in the lawn, when he started having a sharp pain on his chest area. The patient stated that he felt very diaphoretic and short of breath and at this time, he had to sit down. His employer called the EMS. The patient stated that he had some left upper extremity numbness, which lasted for about 3 to 5 minutes and resolved after he started squeezing and shaking his hand. The patient states that he has had a stroke in the past. However, he does not recall which side and he is on aspirin for that. He denies any chest pain radiating down to his left arm or to his jaw area. The patient described the pain as a sharp pain, which was not reproducible. He denies any fevers or chills. He states that he did have this pain over the weekend when he was playing with his grand kids. However, this lasted very shortly and it resolved without any intervention. PAST SURGICAL HISTORY: He has tonsillectomy, surgery to the brain, and left knee surgery. He has also had a cardiac catheterization in 2019. PAST MEDICAL HISTORY: History of hypertension, hypercholesterolemia, hypothyroidism, and CVA in the past. SOCIAL HISTORY: He is a former smoker. Denies any alcohol use or drug use. He lives at home with family. ALLERGIES: HE IS ALLERGIC TO AZITHROMYCIN. MEDICATIONS: He is on; 1. Entresto 24/ one p.o. daily. 2. Colace one p.o. daily. 3. Lasix 20 mg daily. 4. Levothyroxine 100 mcg daily. 5. Aspirin 81 mg daily. PHYSICAL EXAMINATION: VITAL SIGNS: As of the following; temperature 98.5, 55 heart rate, respiratory rate 15, 99% on room air, and 119/71. GENERAL: He is awake, alert, and oriented x3. Does not appear in distress. CV: S1 and S2 present. No murmurs, rubs, or gallops. ABDOMEN: Soft and nontender. Bowel sounds are present x2. EXTREMITIES: No edema. Pedal pulses present x2. NEUROVASCULAR: No focal deficits noted. LUNGS: Clear to auscultation. No rhonchi or wheezes noted. SKIN: No cuts, lesions, or bruises noted. FAMILY HISTORY: No history of heart disease or stroke. Code status is full code. LABORATORY RESULTS: WBCs of 4.6, hemoglobin of 13.2, hematocrit of 38.3, and platelets of 176. Chemistry; sodium of 136, potassium of 4.4, BUN of 14, and creatinine of 0.84. Troponin is 0.118 and then 0.122. His BNP was ordered, but not done yet. Chest x-ray did not show any acute abnormalities. ASSESSMENT AND PLAN: The patient is a 54-year-old male, who presents to the hospital with complaints of chest pain. 1. Chest pain, most likely non-ST segment elevation myocardial infarction. The patient did have a stress test in November 2019, followed by a cardiac cath without any intervention. Again in November of 2019, the cardiac cath indicated that he had a lesion on the LAD 50%, mid LAD was 40%, proximal LAD was 50%, circumflex was 70%, and LMCA was 30%. We will start the patient on some Lovenox and also aspirin and statin. Cardiology has been consulted and we will continue to monitor. 2. Left arm tingling. The patient has had a stroke in the past. I will go ahead and get an MRI brain just to rule out any stroke or any other abnormalities. 3. Hypothyroidism. We will continue his home medication. 4. Deep venous thrombosis prophylaxis. The patient is already on Lovenox. Job ID: [id number]
[2020-05-06] MEDS: Enoxaparin Sodium 100 MG/ML SYRINGE SC SCH (21:54)
[2020-05-06] MEDS: Simvastatin 5 MG TAB PO SCH (21:55)
[2020-05-07] MEDS: Levothyroxine Sodium 100 MCG TAB PO SCH (05:29)
[2020-05-07 06:06] LABS: #Basophils 0.1 thou/uL (0.0-0.2); #Eosinphils 0.3 thou/uL (0.0-0.7); #Lymphocytes 2.5 thou/uL (1.20-3.40); #Monocytes 0.5 thou/uL (0.11-0.59); #Neutrophils 2.1 thou/uL (1.40-6.50); %Basophils 1.2 % (0.0-1.0); %Eosinophils 5.2 % (0.0-10.0); %Lymphocytes 45.3 % (21.0-51.0); %Monocytes 9.5 % (0.0-10.0); %Neutrophils 38.7 % (42.0-75.0); Mean Corpuscular HGB CONC 33.6 g/dL (32.0-36.0); Mean Corpuscular Hemoglobin 30.5 pg (27.0-31.0); Mean Corpuscular Volume 90.7 fL (78.0-98.0); Mean Platelet Volume 8.2 fL (7.4-10.4); Platelet Count 192 thou/uL (130-400); RBC Distribution Width 12.6 % (11.5-14.5); Red Blood Cell (RBC) Count 4.27 mill/uL (4.70-6.10); White Blood Cell (WBC) Count 5.5 thou/uL (4.8-10.8)
[2020-05-07 06:25] LABS: Anion Gap 13 mmol/L (10-20); BUN (Urea Nitrogen) 13 mg/dL (8.4-25.7); Calc. Creatinine Clearance 148 mL/min (70-130); Calcium 9.9 mg/dL (7.8-10.44); Carbon Dioxide 22 mmol/L (22-29); Chloride 105 mmol/L (98-107); Estimated GFR-MDRD Greater than 90; Glucose 89 mg/dL (70-105); Potassium 3.9 mmol/L (3.5-5.1); Sodium 136 mmol/L (136-145)
[2020-05-07] MEDS ORDERED: Atorvastatin Calcium 20 MG TAB PO SCH (09:00)
[2020-05-07] MEDS: Aspirin Chewable 81 MG TAB PO SCH (09:12)
[2020-05-07] MEDS: Docusate 100 MG CAP PO SCH (09:12)
[2020-05-07] MEDS: Enoxaparin Sodium 100 MG/ML SYRINGE SC SCH ×2 (11:16→20:45)
--- NOTE | 2020-05-07 13:18 | MRI ---
MRI of thebrain: 05/07/2020 COMPARISON:None available HISTORY:Chest pain, jaw pain, left arm weakness TECHNIQUE: Multiplanar multisequence MR imaging of thebrain without contrast Findings:The axial gradient echo imaging demonstrates no evidence for acute hemorrhage. Diffusion ivonne ghted imaging demonstrates no evidence for acute infarction. There is encephalomalacia within the inferior aspect of the left cerebellar hemisphere, evidence of prior left posterior inferior cerebell ar artery infarction. Arterial flow voids at the axial level of the skull base appear grossly unremarkable on the T2-weight ed imaging. Regional bone marrow signal intensity is within normal limits on the sagittal T1-weighted imaging. IMPRESSION:Evidence of prior left posterior inferior cerebellar artery territory infarction. No acute infarction or intracranial hemorrhage.
--- NOTE | 2020-05-07 15:26 | PDOC.HOSPP ---
- Subjective Encounter Date: 05/07/20 Encounter Time: 10:30 Subjective: pt up in bed no complains of chest pain - Objective Vital Signs & Weight: Vital Signs (12 hours) Temp Pulse Pulse Pulse Resp BP BP 05/07/20 11:48 97.6 F 57 L 16 05/07/20 11:40 54 L 62 137/76 126/72 05/07/20 08:59 05/07/20 08:00 98 F 63 16 05/07/20 06:38 05/07/20 03:41 97.4 F L 50 L 18 BP Pulse Ox 05/07/20 11:48 137/76 98 05/07/20 11:40 05/07/20 08:59 94 L 05/07/20 08:00 109/64 94 L 05/07/20 06:38 97 05/07/20 03:41 113/71 93 L Weight Weight 215 lb I&O: 05/06/20 05/07/20 05/08/20 06:59 06:59 06:59 Intake Total 660 Balance 660 Result Diagrams: 05/07/20 05:35 05/07/20 05:35 Hospitalist ROS - Review of Systems Cardiovascular: denies: chest pain, palpitations, orthopnea, paroxysmal noc. dyspnea, edema, light headedness, other Gastrointestinal: denies: nausea, vomiting, abdominal pain, diarrhea, constipation, melena, hematochezia, other Genitourinary: denies: dysuria, frequency, incontinence, hematuria, retention, other - Medication Medications: Active Medications Generic Name Dose Route Start Last Admin Trade Name Freq PRN Reason Stop Dose Admin Aspirin 81 mg 05/07/20 09:00 05/07/20 09:12 Aspirin Chewable PO 81 mg DAILY ARTURO Administration Docusate Sodium 100 mg 05/07/20 09:00 05/07/20 09:12 Colace PO 100 mg DAILY ARTURO Administration Enoxaparin Sodium 100 mg 05/06/20 21:00 05/07/20 11:16 Lovenox SC 100 mg 0900,2099 ARTURO Administration Isosorbide Mononitrate 30 mg 05/07/20 09:00 05/07/20 11:17 Imdur Er PO 30 mg DAILY ARTURO Administration Levothyroxine Sodium 100 mcg 05/07/20 06:00 05/07/20 05:29 Synthroid PO 100 mcg 0600 ARTURO Administration Sacubitril/Valsartan 0.5 tab 05/06/20 21:00 05/07/20 11:17 Entresto 24 Mg-26 Mg Tablet PO 0.5 tab BID ARTURO Administration Simvastatin 10 mg 05/06/20 21:00 05/06/20 21:55 Zocor PO 10 mg HS ARTURO Administration - Exam Neck: negative: supple, symmetric, no JVD, no thyromegaly, no lymphadenopathy, no carotid bruit, JVD Heart: negative: RRR, no murmur, no gallops, no rubs, normal peripheral pulses, irregular, diminshed peripheral pulses, murmur present, II/IV, III/IV Respiratory: negative: CTAB, no wheezes, no rales, no ronchi, normal chest expansion, no tachypnea, normal percussion, rales, rhonchi, tachypneic, wheezes Hosp A/P (1) NSTEMI (non-ST elevated myocardial infarction) Code(s): I21.4 - NON-ST ELEVATION (NSTEMI) MYOCARDIAL INFARCTION Status: Acute (2) Chest pain Code(s): R07.9 - CHEST PAIN, UNSPECIFIED Status: Acute (3) Hypertension Code(s): I10 - ESSENTIAL (PRIMARY) HYPERTENSION Status: Chronic (4) Hypothyroidism Code(s): E03.9 - HYPOTHYROIDISM, UNSPECIFIED Status: Chronic - Plan pt recently had cath and stress test on 12/15. He comes in for chest pain and has mild elevated trops. ER called cardio given her recent cath and recommended to admit pt. pt is now on lovenox, cardio consulted. pt has been having some weakness to left upper ext will get mri brain.
[2020-05-07] MEDS: Simvastatin 5 MG TAB PO SCH (20:45)
--- NOTE | 2020-05-08 00:10 | CON ---
DATE OF CONSULTATION: HISTORY OF PRESENT ILLNESS: Mr. Carlson is a 54-year-old male, wtt I have followed intermittently over the last 13 years. In October 2007, he had sharp left-sided chest pain lasting 1-2 seconds. He underwent adenosine Cardiolite testing, which revealed no evidence of ischemia. There was suggestion of scar in the apex and ejection fraction was 51%. In July 2014, he again underwent Lexiscan Cardiolite testing for shortness of breath and left arm numbness and this revealed no ischemia with ejection fraction of 65%. Echo at that time revealed an ejection fraction of 50% to 55%. I did not see him from October 2007 until he was hospitalized in May 2018. He had been on blood pressure medications and lost weight from 390 pounds down to 250 pounds. In 2014, his blood pressure medicines were discontinued, but he did not watch his blood pressure after that time. When he was hospitalized in May 2018, he had left-sided chest discomfort, which sounds similar to what he had in 2007. It was located on the left side of the chest, very sharp stabbing pain, lasting 1-2 seconds. Several minutes later, this will be repeated. Blood pressure was 190/ 100. Cardiac enzymes were unremarkable. He underwent Cardiolite testing, which revealed no evidence of ischemia or fixed defect; however, he had an ejection fraction of 42% with diffuse hypokinesis. Echo revealed ejection fraction of 40% to 45%. He was bradycardic during that admission, so was not placed on any beta blockers. He was discharged on Entresto as well as furosemide. He was seen in the office in January and July 2019, had no symptoms. He then presented in November 2019, complaining of one week of intermittent chest discomfort with four or five episodes per day. Again, this was sharp left-sided pain without radiation, would occur at rest and with exertion, would last approximately 30 seconds. Cardiac enzymes revealed troponin I of 0.116. He underwent adenosine Cardiolite testing, which revealed findings suggestive of mild reversible defect in the septum and the anteroseptal wall. There was global hypokinesis with ejection fraction of 45%. He then underwent cardiac catheterization, which revealed mild global hypokinesis with ejection fraction of 40% to 45%. There was a 30% left main, 50% proximal LAD, 40% mid LAD. There was a 70% lesion in a first obtuse marginal. He underwent fractional flow reserve of the 70% obtuse marginal lesion and this was 0.95, which designated continued normal flow in the first obtuse marginal. He was placed on long-acting nitrates and discharged. He last was seen in the office in December 2019 and at that time was fairly asymptomatic. He was working in the heat yesterday and began to have again similar type discomfort to what he has had over the last 13 years. This is a sharp, left-sided stabbing chest discomfort that will last approximately 30 seconds, resolved and then several minutes later, will recur. He has minimally elevated troponin I, which he tends to chronically have. PAST MEDICAL HISTORY: Hypertension, hypercholesterolemia, left ventricular dysfunction, hypothyroidism, and history of stroke in the past. PAST SURGICAL HISTORY: Tonsillectomy, left knee surgery. He also underwent resection of a pituitary tumor. However, apparently the pathology was read out as inflammation. MEDICATIONS: 1. Isosorbide mononitrate 30 mg q.a.m. 2. Atorvastatin 20 daily. 3. Entresto / one half tablet b.i.d. 4. Nitroglycerin p.r.n. 5. Synthroid 100 mcg daily. 6. Furosemide 20 mg q.a.m. 7. Aspirin 81 daily. ALLERGIES: NONE. SOCIAL HISTORY: Smoked three packs per day, but stopped 28 years ago. He drank more than a case of beer per day, but also stopped that 27 years ago. 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 FAMILY HISTORY: Negative for coronary artery disease. REVIEW OF SYSTEMS: A 10-point review of systems is unremarkable. PHYSICAL EXAMINATION: VITAL SIGNS: Blood pressure 114/71 and pulse 65. HEENT: PERRL. NECK: Supple. CHEST: Clear. CARDIAC: S1 and S2 normal without any S3, S4, or murmurs. ABDOMEN: Normal bowel sounds without tenderness or organomegaly. EXTREMITIES: Revealed no clubbing, cyanosis, or edema. NEUROLOGIC: Grossly intact. SKIN: Warm and dry. LABORATORY DATA: EKG reveals normal sinus rhythm with right bundle-branch block. Sodium 136, potassium 3.9, chloride 105, carbon dioxide 22, BUN 13, creatinine 0.77. Hemoglobin 13.0, hematocrit 38.7, white count 5500, platelets 192,000. D-dimer 0.89. Chest CTA revealed no evidence of pulmonary embolism. Brain MRI revealed evidence of prior left posterior inferior cerebellar area infarction, but no acute infarction. IMPRESSION: 1. Tjh-LC-qppoxxfet myocardial infarction type 2. He has chronically elevated troponins. 2. Atypical chest discomfort, which does not sound cardiac in nature. This is very similar to the discomfort he has had over the past 12 or 13 years. 3. Coronary artery disease, felt best to be treated medically. The most significant lesion that he had was a 70% lesion in the first obtuse marginal. He underwent flow wire measurement in this artery and there was normal flow at catheterization in 11/2019. 4. Hypertension. 5. Hypercholesterolemia. 6. Former smoker. 7. History of resection of a portion of the pituitary. 8. Obesity. 9. History of CVA. PLAN: With catheterization five months ago and very atypical nature of his chest discomfort and chronically elevated troponin Is, I do not feel any further evaluation is warranted. I will increase his dose of isosorbide to 60 mg q.a.m. He also should use nitroglycerin whenever he has these episodes or discomfort. However, historically, this does not sound like angina and it sounds like the atypical chest pain he has had over the last 13 years. Job ID: [id number] [facility]
[2020-05-08] MEDS: Levothyroxine Sodium 100 MCG TAB PO SCH (06:21)
[2020-05-08] MEDS: Docusate 100 MG CAP PO SCH (09:43)
[2020-05-08] MEDS: Enoxaparin Sodium 100 MG/ML SYRINGE SC SCH (09:44)
[2020-05-08] MEDS: Aspirin Chewable 81 MG TAB PO SCH (09:44)
[2020-05-08 11:41] VITALS: BP 115/69; TEMP 98
--- NOTE | 2020-05-09 02:24 | DIS ---
DATE OF ADMISSION: 05/06/2020 DATE OF DISCHARGE: 05/08/2020 DISCHARGE DIAGNOSES: 1. Chest pain, most likely atypical. 2. Demand ischemia type 2. 3. Hypertension. HOSPITAL COURSE: The patient is a 54-year-old male, who initially presented to the hospital with chest pain. The patient had a CTA, which was negative for any sort of pulmonary embolism. He does have some diffuse ground-glass opacities. His COVID test was negative. The patient did complain of some left arm numbness, which lasted for only a few seconds. At this time, MRI brain was done, which also was negative. He just had an old left posterior cerebral infarct. The patient did state that he did have an old stroke in the past. The patient was seen by Cardiology. He had recently undergone a stress test and then a cardiac catheterization and per Cardiology's notes no recommendations or no additional tests were needed. The only changes are to increase his isosorbide from 30 to 60 mg a day, which I have done. MEDICATIONS: His home medications will be; 1. Isosorbide 60 mg daily. 2. Aspirin 81 mg daily. 3. Colace 100 mg daily. 4. Lasix 20 mg daily. 5. Synthroid 100 daily. 6. Entresto twice a day. 7. Atorvastatin 20 mg daily. PHYSICAL EXAMINATION: VITAL SIGNS: On discharge; temperature 98.0, heart rate 61, respiratory rate 16, O2 saturations 97% on room air, and blood pressure 115/69. GENERAL: He is awake, alert, and oriented x3. Does not appear in distress. CV: S1 and S2 present. No murmurs, rubs, or gallops. Again, he will be discharged home. He will follow up with his primary and Cardiology as needed. Job ID: [id number]
--- NOTE | 2020-05-09 13:02 | EKG ---
Test Reason : CHEST PAIN Blood Pressure : / mmHG Vent. Rate : 068 BPM Atrial Rate : 068 BPM P-R Int : 198 ms QRS Dur : 138 ms QT Int : 456 ms P-R-T Axes : 034 -35 088 degrees QTc Int : 484 ms Demand pacemaker; interpretation is based on intrinsic rhythm Sinus rhythm with Premature ventricular complexes or Fusion complexes Left axis deviation Right bundle branch block Left ventricular hypertrophy with repolarization abnormality Abnormal ECG Confirmed by HALINA VIDAL ([id number]), sports editor MARIVEL DENT ([id number]) on 05/09/2020 1:01:34 PM Referred By: Confirmed By:HALINA Hernandez
== END 2020-05-08 14:15 | disposition home or self-care (01) | DRG 282 ==
LOC: ERS 11:27 → ERHOLD 15:39 → 2SE 16:37
PROVIDERS: ADMIT Internal Medicine; ATTEND Internal Medicine
DX: I21.A1 Myocardial infarction type 2 (principal); R07.89 Other chest pain; I10 Essential (primary) hypertension; E78.00 Pure hypercholesterolemia, unspecified; Z20.828 Contact with and (suspected) exposure to other viral communicable diseases; E03.9 Hypothyroidism, unspecified; E66.9 Obesity, unspecified; Z87.891 Personal history of nicotine dependence; Z86.73 Personal history of transient ischemic attack (TIA), and cerebral infarction without residual deficits; Z79.890 Hormone replacement therapy; Z79.899 Other long term (current) drug therapy; Z79.82 Long term (current) use of aspirin; Z68.30 Body mass index [BMI] 30.0-30.9, adult
CPT/HCPCS: 36415; 70551; 71045; 71275; 80048; 80053; 82553; 83690; 83880; 84484; 85025; 85379; 93005; 94760; J1650; Q9967

== ENCOUNTER 2022-06-14 20:35 | Inpatient (IN) | payer BC ==
[~2022-06-14 20:35] MED LIST: Iopamidol-370 76% 500 ML 1 ML ONE
[2022-06-14] MEDS ORDERED: NOREPINEPHRINE 8 MG/250 ML-D5W 250 ML ONE (20:59)
[2022-06-14 22:01] LABS: #Basophils 0.1 thou/uL (0.0-0.2); #Lymphocytes 2.1 thou/uL (1.20-3.40); #Monocytes 0.6 thou/uL (0.11-0.59); #Neutrophils 6.4 thou/uL (1.40-6.50); %Basophils 0.8 % (0.0-1.0); %Eosinophils 0.2 % (0.0-10.0); %Lymphocytes 22.7 % (21.0-51.0); %Monocytes 6.2 % (0.0-10.0); %Neutrophils 70.2 % (42.0-75.0); Hemoglobin 12.7 g/dL (14.0-18.0); Mean Corpuscular HGB CONC 32.9 g/dL (32.0-36.0); Mean Corpuscular Hemoglobin 32.5 pg (27.0-31.0); Mean Corpuscular Volume 98.9 fL (78.0-98.0); Mean Platelet Volume 7.6 fL (7.4-10.4); Platelet Count 149 thou/uL (130-400); RBC Distribution Width 13.2 % (11.5-14.5); Red Blood Cell (RBC) Count 3.89 mill/uL (4.70-6.10); White Blood Cell (WBC) Count 9.2 thou/uL (4.8-10.8)
[2022-06-14 22:05] LABS: Bilirubin Negative (Negative); Blood, Urine 2+ (Negative); Clarity Clear (Clear); Glucose, Urine (Dipstick) Normal (Negative); Ketone, Urine Negative (Negative); Leukocyte Negative Leu/uL (Negative); Nitrite Negative (Negative); Protein, Urine (Dipstick) 10 mg/dL (Neg-Trace); Specific Gravity, Urine 1.019 (1.002-1.036); Squamous Epithelial None Seen HPF (0-3); Urobilinogen Normal mg/dL (Less than 2)
[2022-06-14 22:16] LABS: INR-International Normal Ratio 1.4; Prothrombin Time 17.4 sec (12.0-14.7)
[2022-06-14 22:17] LABS: ALT (SGPT) 15 U/L (8-55); AST (SGOT) 34 U/L (5-34); Albumin 3.5 g/dL (3.5-5.0); Alkaline Phosphatase 58 U/L (40-110); Anion Gap 17 mmol/L (10-20); BUN (Urea Nitrogen) 24 mg/dL (8.4-25.7); CRP (Inflammatory) 15.65 mg/dL (= or < 0.5); Calc. Creatinine Clearance 0 mL/min (70-130); Calcium 8.9 mg/dL (7.8-10.44); Carbon Dioxide 22 mmol/L (22-29); Chloride 103 mmol/L (98-107); Estimated GFR 51; Globulin 2.8 g/dL (2.4-3.5); Glucose 77 mg/dL (70-105); Lipase 13 U/L (8-78); Magnesium 1.8 mg/dL (1.6-2.6); Potassium 3.5 mmol/L (3.5-5.1); Protein, Total 6.3 g/dL (6.0-8.3); Sodium 138 mmol/L (136-145)
[2022-06-14 22:20] LABS: Bacteria/HPF 1+ HPF (None Seen)
[2022-06-14 22:21] LABS: RBC/HPF 0-3 HPF (0-3); WBC/HPF 0-3 HPF (0-3)
[2022-06-14 22:36] LABS: Free T4 (Free Thyroxine) 1.03 ng/dL (0.70-1.48); Thyroid Stimulating Hormone 1.5099 uIU/mL (0.35-4.94)
[2022-06-14] MEDS ORDERED: Piperacillin/Tazobactam 3.375 GM VIAL ONE (22:45)
[2022-06-14] MEDS ORDERED: methylPREDNISolone Sod Succ/PF 125 MG/2 ML VIAL ONE (22:45)
[2022-06-14] MEDS ORDERED: Ondansetron PF 4 MG/2 ML Vial ONE (22:47)
[2022-06-14 23:06] LABS: CKMB 5.5 ng/mL (0-6.6)
[2022-06-15] MEDS ORDERED: Acetaminophen 325 MG TAB PO PRN (02:57)
[2022-06-15] MEDS ORDERED: Ondansetron PF 4 MG/2 ML Vial IVP PRN (02:57)
[2022-06-15] MEDS ORDERED: NOREPINEPHRINE 8 MG/250 ML-D5W 250 ML IVPB SCH (03:00)
[2022-06-15 03:02] LABS: Troponin I 6.143 ng/mL (< 0.028)
[2022-06-15 03:43] LABS: Legionella Urinary Ag Negative (Negative)
[2022-06-15 03:44] LABS: Strep pneumo Urine Ag NEGATIVE (NEGATIVE)
[2022-06-15 03:56] LABS: #Lymphocytes 0.6 thou/uL (1.20-3.40); #Monocytes 0.3 thou/uL (0.11-0.59); #Neutrophils 6.4 thou/uL (1.40-6.50); %Basophils 0.1 % (0.0-1.0); %Eosinophils 0.1 % (0.0-10.0); %Monocytes 3.4 % (0.0-10.0); %Neutrophils 88.4 % (42.0-75.0); Hemoglobin 12.8 g/dL (14.0-18.0); Mean Corpuscular HGB CONC 32.6 g/dL (32.0-36.0); Mean Corpuscular Hemoglobin 32.2 pg (27.0-31.0); Mean Corpuscular Volume 98.6 fL (78.0-98.0); Mean Platelet Volume 7.5 fL (7.4-10.4); Platelet Count 160 thou/uL (130-400); RBC Distribution Width 13.2 % (11.5-14.5); Red Blood Cell (RBC) Count 3.98 mill/uL (4.70-6.10); White Blood Cell (WBC) Count 7.3 thou/uL (4.8-10.8)
[2022-06-15] MEDS ORDERED: Piperacillin/Tazobactam 3.375 GM in Sodium Chloride 0.9% 100 ML IVPB SCH (04:00)
[2022-06-15 04:05] LABS: INR-International Normal Ratio 1.4
[2022-06-15 04:06] LABS: PTT 43.7 sec (22.9-36.1)
[2022-06-15 04:10] LABS: ALT (SGPT) 14 U/L (8-55); AST (SGOT) 38 U/L (5-34); Albumin 3.5 g/dL (3.5-5.0); Alkaline Phosphatase 57 U/L (40-110); Anion Gap 16 mmol/L (10-20); BUN (Urea Nitrogen) 22 mg/dL (8.4-25.7); Bilirubin, Total 1.1 mg/dL (0.2-1.2); Calc. Creatinine Clearance 0 mL/min (70-130); Calcium 8.9 mg/dL (7.8-10.44); Carbon Dioxide 17 mmol/L (22-29); Chloride 107 mmol/L (98-107); Estimated GFR 72; Globulin 2.9 g/dL (2.4-3.5); Glucose 107 mg/dL (70-105); Potassium 3.7 mmol/L (3.5-5.1); Protein, Total 6.4 g/dL (6.0-8.3); Sodium 136 mmol/L (136-145)
[2022-06-15 04:19] VITALS: BMI 36.4
[2022-06-15 07:00] LABS: Critical Call Chem Troponin I RESULT DECREASING; Troponin I 5.507 ng/mL (< 0.028)
[2022-06-15 07:08] LABS: Phosphorus 3.7 mg/dL (2.3-4.7)
[2022-06-15] MEDS: Vancomycin 1.5 GRAM/300 ML BAG 1.5 GM in Premix Bag 1 BAG IVPB SCH ×2 (08:47→19:47)
[2022-06-15] MEDS: Piperacillin/Tazobactam 3.375 GM in Sodium Chloride 0.9% 100 ML IVPB SCH ×3 (08:48→23:11)
[2022-06-15] MEDS: Dexamethasone 4 mg/ml Vial SLOW IVP SCH ×4 (08:49→19:46)
[2022-06-15] MEDS: Famotidine/PF 20 mg/2ml Vial SLOW IVP SCH ×2 (08:49→20:49)
[2022-06-15] MEDS ORDERED: Famotidine 20 MG TAB PO SCH (09:00)
[2022-06-15] MEDS ORDERED: EPINEPHrine 1 MG/ML AMP ONE (09:21)
[2022-06-15] MEDS ORDERED: Lidocaine 1% (PF) 30 ML VIAL ONE (09:21)
[2022-06-15] MEDS ORDERED: fentaNYL Citrate/PF 100 MCG/2 ML SYRINGE ONE (09:26)
[2022-06-15] MEDS ORDERED: Dexamethasone 4 mg/ml Vial SLOW IVP SCH (09:30)
[2022-06-15] MEDS: Heparin 5,000 UNITS/ML VIAL SC SCH ×3 (09:44→20:49)
[2022-06-15 09:47] LABS: SARS-CoV-2 NAA Rapid Test Not Detected (NotDetected)
[2022-06-15] MEDS ORDERED: Ondansetron PF 4 MG/2 ML Vial ONE (09:50)
[2022-06-15] MEDS ORDERED: Succinylcholine 200 MG/10 ml SYRINGE FS ONE (09:50)
[2022-06-15] MEDS ORDERED: Clindamycin/D5W 900 MG in Premix Bag 1 BAG IVPB SCH (14:00)
[2022-06-15] MEDS ORDERED: Clindamycin/D5W 600 MG in Premix Bag 1 BAG IVPB SCH (14:00)
[2022-06-15] MEDS: Clindamycin/D5W 900 MG in Premix Bag 1 BAG IVPB SCH ×2 (14:23→21:29)
[2022-06-16] MEDS: Dexamethasone 4 mg/ml Vial SLOW IVP SCH ×2 (01:25→08:45)
[2022-06-16 03:55] LABS: #Basophils 0.1 thou/uL (0.0-0.2); #Lymphocytes 0.8 thou/uL (1.20-3.40); #Monocytes 0.3 thou/uL (0.11-0.59); #Neutrophils 8.1 thou/uL (1.40-6.50); %Basophils 0.6 % (0.0-1.0); %Eosinophils 0.1 % (0.0-10.0); %Lymphocytes 8.9 % (21.0-51.0); %Monocytes 3.5 % (0.0-10.0); Hemoglobin 10.9 g/dL (14.0-18.0); Mean Corpuscular HGB CONC 33.3 g/dL (32.0-36.0); Mean Corpuscular Hemoglobin 32.7 pg (27.0-31.0); Mean Corpuscular Volume 98.1 fL (78.0-98.0); Mean Platelet Volume 8.4 fL (7.4-10.4); Platelet Count 133 thou/uL (130-400); RBC Distribution Width 13.2 % (11.5-14.5); Red Blood Cell (RBC) Count 3.33 mill/uL (4.70-6.10); White Blood Cell (WBC) Count 9.4 thou/uL (4.8-10.8)
[2022-06-16 04:07] LABS: Anion Gap 12 mmol/L (10-20); BUN (Urea Nitrogen) 23 mg/dL (8.4-25.7); Calc. Creatinine Clearance 116 mL/min (70-130); Calcium 9.4 mg/dL (7.8-10.44); Carbon Dioxide 21 mmol/L (22-29); Chloride 109 mmol/L (98-107); Estimated GFR 76; Glucose 199 mg/dL (70-105); Potassium 3.9 mmol/L (3.5-5.1); Sodium 138 mmol/L (136-145)
[2022-06-16] MEDS: Clindamycin/D5W 900 MG in Premix Bag 1 BAG IVPB SCH ×3 (05:12→22:59)
[2022-06-16 08:08] LABS: Vancomycin, Trough 16.8 ug/mL
[2022-06-16] MEDS: Piperacillin/Tazobactam 3.375 GM in Sodium Chloride 0.9% 100 ML IVPB SCH ×2 (08:14→15:17)
[2022-06-16] MEDS: Famotidine/PF 20 mg/2ml Vial SLOW IVP SCH ×2 (08:15→20:06)
[2022-06-16] MEDS: Heparin 5,000 UNITS/ML VIAL SC SCH ×3 (08:15→20:06)
[2022-06-16] MEDS: Vancomycin 1.5 GRAM/300 ML BAG 1.5 GM in Premix Bag 1 BAG IVPB SCH ×2 (08:55→20:29)
[2022-06-16] MEDS: Furosemide 20 MG TAB PO SCH (15:16)
[2022-06-16] MEDS: Aspirin 81 mg Enteric Coated Tablet PO SCH (15:16)
[2022-06-16] MEDS ORDERED: Dexamethasone 4 mg/ml Vial SLOW IVP SCH (21:00)
[2022-06-17] MEDS: Piperacillin/Tazobactam 3.375 GM in Sodium Chloride 0.9% 100 ML IVPB SCH (00:08)
[2022-06-17 04:01] LABS: #Lymphocytes 1.1 thou/uL (1.20-3.40); #Monocytes 0.4 thou/uL (0.11-0.59); #Neutrophils 8.8 thou/uL (1.40-6.50); %Basophils 0.1 % (0.0-1.0); %Lymphocytes 10.8 % (21.0-51.0); %Neutrophils 85.1 % (42.0-75.0); Hemoglobin 9.9 g/dL (14.0-18.0); Mean Corpuscular Hemoglobin 32.2 pg (27.0-31.0); Mean Corpuscular Volume 97.4 fL (78.0-98.0); Mean Platelet Volume 8.8 fL (7.4-10.4); Platelet Count 143 thou/uL (130-400); RBC Distribution Width 13.4 % (11.5-14.5); Red Blood Cell (RBC) Count 3.07 mill/uL (4.70-6.10); White Blood Cell (WBC) Count 10.3 thou/uL (4.8-10.8)
[2022-06-17 04:17] LABS: Anion Gap 8 mmol/L (10-20); BUN (Urea Nitrogen) 26 mg/dL (8.4-25.7); Calc. Creatinine Clearance 106 mL/min (70-130); Calcium 9.3 mg/dL (7.8-10.44); Carbon Dioxide 25 mmol/L (22-29); Chloride 109 mmol/L (98-107); Estimated GFR 68; Glucose 180 mg/dL (70-105); Potassium 3.7 mmol/L (3.5-5.1); Sodium 138 mmol/L (136-145)
[2022-06-17] MEDS: Clindamycin/D5W 900 MG in Premix Bag 1 BAG IVPB SCH (05:54)
[2022-06-17 08:03] LABS: Vancomycin, Trough 25.7 ug/mL
[2022-06-17] MEDS ORDERED: Levothyroxine Sodium 100 MCG TAB PO SCH (09:00)
[2022-06-17] MEDS: Famotidine/PF 20 mg/2ml Vial SLOW IVP SCH ×2 (09:42→21:37)
[2022-06-17] MEDS: Heparin 5,000 UNITS/ML VIAL SC SCH ×3 (09:42→21:38)
[2022-06-17] MEDS: Atorvastatin Calcium 20 MG TAB PO SCH (09:43)
[2022-06-17] MEDS: Aspirin 81 mg Enteric Coated Tablet PO SCH (09:43)
[2022-06-17] MEDS: Amoxicillin/Potassium Clav 875 MG TAB PO SCH ×2 (09:43→21:37)
[2022-06-17] MEDS: Levothyroxine Sodium 100 MCG TAB PO SCH (09:45)
[2022-06-17] MEDS: Furosemide 20 MG TAB PO SCH (09:46)
[2022-06-17] MEDS ORDERED: Famotidine 20 MG TAB PO SCH (23:30)
[2022-06-18] MEDS: Heparin 5,000 UNITS/ML VIAL SC SCH ×3 (09:49→21:32)
[2022-06-18] MEDS: Atorvastatin Calcium 20 MG TAB PO SCH (09:49)
[2022-06-18] MEDS: Furosemide 20 MG TAB PO SCH (09:49)
[2022-06-18] MEDS: Levothyroxine Sodium 100 MCG TAB PO SCH (09:49)
[2022-06-18] MEDS: Amoxicillin/Potassium Clav 875 MG TAB PO SCH ×2 (09:50→21:31)
[2022-06-18] MEDS: Famotidine 20 MG TAB PO SCH ×2 (09:50→21:31)
[2022-06-18] MEDS: Aspirin 81 mg Enteric Coated Tablet PO SCH (09:50)
[2022-06-18 10:11] LABS: Anion Gap 11 mmol/L (10-20); BUN (Urea Nitrogen) 23 mg/dL (8.4-25.7); Calc. Creatinine Clearance 126 mL/min (70-130); Calcium 10.1 mg/dL (7.8-10.44); Carbon Dioxide 26 mmol/L (22-29); Chloride 106 mmol/L (98-107); Estimated GFR 84; Glucose 123 mg/dL (70-105); Potassium 3.4 mmol/L (3.5-5.1); Sodium 140 mmol/L (136-145)
[2022-06-19 05:20] LABS: Anion Gap 8 mmol/L (10-20); BUN (Urea Nitrogen) 20 mg/dL (8.4-25.7); Calc. Creatinine Clearance 121 mL/min (70-130); Calcium 9.4 mg/dL (7.8-10.44); Carbon Dioxide 30 mmol/L (22-29); Chloride 105 mmol/L (98-107); Estimated GFR 80; Glucose 97 mg/dL (70-105); Potassium 3.2 mmol/L (3.5-5.1); Sodium 140 mmol/L (136-145)
[2022-06-19] MEDS ORDERED: Potassium Chloride 20 MEQ TAB PO SCH (09:30)
[2022-06-19] MEDS: Levothyroxine Sodium 100 MCG TAB PO SCH (09:55)
[2022-06-19] MEDS: Atorvastatin Calcium 20 MG TAB PO SCH (09:55)
[2022-06-19] MEDS: Aspirin 81 mg Enteric Coated Tablet PO SCH (09:55)
[2022-06-19] MEDS: Amoxicillin/Potassium Clav 875 MG TAB PO SCH ×2 (09:55→21:52)
[2022-06-19] MEDS: Furosemide 20 MG TAB PO SCH (09:55)
[2022-06-19] MEDS: Famotidine 20 MG TAB PO SCH ×2 (09:56→21:51)
[2022-06-19] MEDS: Heparin 5,000 UNITS/ML VIAL SC SCH ×3 (09:56→21:52)
[2022-06-20 05:05] LABS: Anion Gap 10 mmol/L (10-20); BUN (Urea Nitrogen) 17 mg/dL (8.4-25.7); Calc. Creatinine Clearance 133 mL/min (70-130); Calcium 9.3 mg/dL (7.8-10.44); Carbon Dioxide 29 mmol/L (22-29); Chloride 106 mmol/L (98-107); Estimated GFR 90; Glucose 85 mg/dL (70-105); Potassium 3.5 mmol/L (3.5-5.1); Sodium 141 mmol/L (136-145)
[2022-06-20] MEDS: Levothyroxine Sodium 100 MCG TAB PO SCH (09:08)
[2022-06-20] MEDS: Aspirin 81 mg Enteric Coated Tablet PO SCH (09:08)
[2022-06-20] MEDS: Furosemide 20 MG TAB PO SCH (09:08)
[2022-06-20] MEDS: Amoxicillin/Potassium Clav 875 MG TAB PO SCH ×2 (09:09→19:59)
[2022-06-20] MEDS: Heparin 5,000 UNITS/ML VIAL SC SCH ×3 (09:09→19:59)
[2022-06-20] MEDS: Famotidine 20 MG TAB PO SCH ×2 (09:09→20:00)
[2022-06-20] MEDS: Atorvastatin Calcium 20 MG TAB PO SCH (09:09)
[2022-06-21 05:13] LABS: Anion Gap 11 mmol/L (10-20); BUN (Urea Nitrogen) 14 mg/dL (8.4-25.7); Calc. Creatinine Clearance 108 mL/min (70-130); Calcium 9.2 mg/dL (7.8-10.44); Carbon Dioxide 29 mmol/L (22-29); Chloride 104 mmol/L (98-107); Estimated GFR 79; Glucose 79 mg/dL (70-105); Potassium 3.2 mmol/L (3.5-5.1); Sodium 141 mmol/L (136-145)
[2022-06-21] MEDS ORDERED: Potassium Chloride 20 MEQ TAB PO SCH (08:15)
[2022-06-21] MEDS: Levothyroxine Sodium 100 MCG TAB PO SCH (09:35)
[2022-06-21] MEDS: Heparin 5,000 UNITS/ML VIAL SC SCH ×2 (09:35→14:29)
[2022-06-21] MEDS: Amoxicillin/Potassium Clav 875 MG TAB PO SCH (09:35)
[2022-06-21] MEDS: Aspirin 81 mg Enteric Coated Tablet PO SCH (09:35)
[2022-06-21] MEDS: Furosemide 20 MG TAB PO SCH (09:35)
[2022-06-21] MEDS: Famotidine 20 MG TAB PO SCH (09:35)
[2022-06-21] MEDS: Atorvastatin Calcium 20 MG TAB PO SCH (09:35)
[2022-06-21 12:41] VITALS: BP 138/86; TEMP 98
== END 2022-06-21 18:00 | disposition home or self-care (01) | DRG 871 ==
LOC: ERS 20:35 → CCU 06-15 01:30 → IMCU/EMU 06-16 18:37 → 2NO 06-17 16:03
PROVIDERS: ADMIT Internal Medicine; ATTEND Internal Medicine
PROC: 0W9 Anatomical Regions, General, Drainage (ICD-10-PCS; principal; 2022-06-15)
PROC: 05HY33Z Insertion of Infusion Device into Upper Vein, Percutaneous Approach (ICD-10-PCS; 2022-06-15)
PROC: 3E033XZ Introduction of Vasopressor into Peripheral Vein, Percutaneous Approach (ICD-10-PCS; 2022-06-15)
PROC: 3E04329 Introduction of Other Anti-infective into Central Vein, Percutaneous Approach (ICD-10-PCS; 2022-06-15)
DX: A41.9 Sepsis, unspecified organism (principal); Z20.822 Contact with and (suspected) exposure to COVID-19; G93.41 Metabolic encephalopathy; I50.43 Acute on chronic combined systolic (congestive) and diastolic (congestive) heart failure; R65.21 Severe sepsis with septic shock; J18.9 Pneumonia, unspecified organism; I21.A1 Myocardial infarction type 2; J39.0 Retropharyngeal and parapharyngeal abscess; E87.20 Acidosis, unspecified; N17.9 Acute kidney failure, unspecified; I42.8 Other cardiomyopathies; I11.0 Hypertensive heart disease with heart failure; I25.10 Atherosclerotic heart disease of native coronary artery without angina pectoris; J03.90 Acute tonsillitis, unspecified; E78.5 Hyperlipidemia, unspecified; E03.9 Hypothyroidism, unspecified; R11.2 Nausea with vomiting, unspecified; T36.0X5A Adverse effect of penicillins, initial encounter; R00.1 Bradycardia, unspecified; E87.6 Hypokalemia; Z86.73 Personal history of transient ischemic attack (TIA), and cerebral infarction without residual deficits; Z79.899 Other long term (current) drug therapy; Z79.890 Hormone replacement therapy; Z79.82 Long term (current) use of aspirin; Z90.89 Acquired absence of other organs; Z98.890 Other specified postprocedural states; Z82.49 Family history of ischemic heart disease and other diseases of the circulatory system; Z87.891 Personal history of nicotine dependence
CPT/HCPCS: 36415; 36556; 70491; 71045; 71275; 74230; 80048; 80053; 80202; 81001; 82553; 83605; 83690; 83735; 83880; 84100; 84439; 84443; 84484; 85025; 85610; 85730; 86140; 86850; 86900; 86901; 87040; 87070; 87077; 87081; 87086; 87205; 87449; 87899; 93005; 93306; 96365; 96375; J0171; J1100; J1644; J2001; J2405; J2543; J2930; J3370; J3490; Q9967; S0028; U0002

== ENCOUNTER 2022-08-05 13:27 | Inpatient (IN) | payer BC ==
[2022-08-05 14:13] LABS: #Eosinphils 0.2 thou/uL (0.0-0.7); #Lymphocytes 2.5 thou/uL (1.20-3.40); #Monocytes 0.4 thou/uL (0.11-0.59); #Neutrophils 3.1 thou/uL (1.40-6.50); %Basophils 0.8 % (0.0-1.0); %Eosinophils 3.6 % (0.0-10.0); %Monocytes 6.1 % (0.0-10.0); %Neutrophils 49.6 % (42.0-75.0); Hemoglobin 11.2 g/dL (14.0-18.0); Mean Corpuscular HGB CONC 33.3 g/dL (32.0-36.0); Mean Corpuscular Hemoglobin 32.9 pg (27.0-31.0); Mean Corpuscular Volume 98.8 fl (78.0-98.0); Mean Platelet Volume 7.3 fL (7.4-10.4); Platelet Count 186 10x3/uL (130-400); White Blood Cell (WBC) Count 6.3 10x3/uL (4.8-10.8)
[2022-08-05 14:34] LABS: ALT (SGPT) 11 U/L (8-55); AST (SGOT) 19 U/L (5-34); Albumin 3.7 g/dL (3.5-5.0); Alkaline Phosphatase 51 U/L (40-110); Anion Gap 11 mmol/L (10-20); BUN (Urea Nitrogen) 19 mg/dL (8.4-25.7); Bilirubin, Total 0.4 mg/dL (0.2-1.2); Calc. Creatinine Clearance 0 mL/min (70-130); Calcium 9.8 mg/dL (7.8-10.44); Carbon Dioxide 24 mmol/L (22-29); Chloride 107 mmol/L (98-107); Estimated GFR 89; Globulin 2.3 g/dL (2.4-3.5); Glucose 76 mg/dL (70-105); Potassium 4.4 mmol/L (3.5-5.1); Sodium 138 mmol/L (136-145)
[2022-08-05 14:57] LABS: CKMB 0.6 ng/mL (0-6.6)
[2022-08-05] MEDS ORDERED: Senokot S 8.6-50 MG TAB PO PRN (15:25)
[2022-08-05] MEDS ORDERED: Ondansetron PF 4 MG/2 ML Vial IVP PRN (15:25)
[2022-08-05] MEDS ORDERED: Acetaminophen 325 MG TAB PO PRN (15:25)
[2022-08-05 15:27] LABS: Magnesium 1.8 mg/dL (1.6-2.6)
[2022-08-05] MEDS ORDERED: Nitroglycerin 0.4 MG TAB (25 Tab Bottle) SL PRN (15:28)
[2022-08-05] MEDS ORDERED: Magnesium 2 GM/50 ML(in water) 2 GM in Premix Bag 1 BAG IVPB SCH (15:45)
[2022-08-05 16:46] LABS: Troponin I 0.117 ng/mL (< 0.028)
[2022-08-05 20:45] VITALS: BMI 35.3
[2022-08-05] MEDS: Atorvastatin Calcium 40 MG TAB PO SCH (21:42)
[2022-08-06 04:57] LABS: Anion Gap 9 mmol/L (10-20); BUN (Urea Nitrogen) 17 mg/dL (8.4-25.7); Calc. Creatinine Clearance 148 mL/min (70-130); Calcium 9.9 mg/dL (7.8-10.44); Carbon Dioxide 26 mmol/L (22-29); Chloride 107 mmol/L (98-107); Estimated GFR 100; Glucose 90 mg/dL (70-105); Magnesium 2.3 mg/dL (1.6-2.6); Potassium 4.2 mmol/L (3.5-5.1); Sodium 138 mmol/L (136-145)
[2022-08-06] MEDS: Levothyroxine Sodium 25 MCG TAB PO SCH (06:31)
[2022-08-06] MEDS: Furosemide 40 MG TAB PO SCH (08:33)
[2022-08-06] MEDS: Aspirin 81 mg Enteric Coated Tablet PO SCH (08:34)
[2022-08-06] MEDS: Enoxaparin Sodium 40 MG/0.4 ML SYRINGE SC SCH (11:06)
[2022-08-06] MEDS ORDERED: Milk Of Magnesia 30 ML UDCUP PO PRN (19:55)
[2022-08-06] MEDS: Atorvastatin Calcium 40 MG TAB PO SCH (20:34)
[2022-08-07 05:02] LABS: #Eosinphils 0.3 thou/uL (0.0-0.7); #Lymphocytes 2.8 thou/uL (1.20-3.40); #Monocytes 0.3 thou/uL (0.11-0.59); #Neutrophils 3.2 thou/uL (1.40-6.50); %Basophils 0.7 % (0.0-1.0); %Eosinophils 4.6 % (0.0-10.0); %Lymphocytes 41.5 % (21.0-51.0); %Monocytes 4.8 % (0.0-10.0); %Neutrophils 48.4 % (42.0-75.0); Hemoglobin 11.4 g/dL (14.0-18.0); Mean Corpuscular HGB CONC 33.3 g/dL (32.0-36.0); Mean Corpuscular Hemoglobin 32.4 pg (27.0-31.0); Mean Corpuscular Volume 97.4 fl (78.0-98.0); Mean Platelet Volume 7.3 fL (7.4-10.4); Platelet Count 198 10x3/uL (130-400); RBC Distribution Width 13.1 % (11.5-14.5); Red Blood Cell (RBC) Count 3.52 mill/uL (4.70-6.10); White Blood Cell (WBC) Count 6.7 10x3/uL (4.8-10.8)
[2022-08-07 05:24] LABS: Anion Gap 11 mmol/L (10-20); BUN (Urea Nitrogen) 17 mg/dL (8.4-25.7); Calc. Creatinine Clearance 128 mL/min (70-130); Calcium 9.6 mg/dL (7.8-10.44); Carbon Dioxide 25 mmol/L (22-29); Chloride 105 mmol/L (98-107); Estimated GFR 89; Glucose 89 mg/dL (70-105); Magnesium 2.3 mg/dL (1.6-2.6); Phosphorus 4.2 mg/dL (2.3-4.7); Potassium 4.1 mmol/L (3.5-5.1); Sodium 137 mmol/L (136-145)
[2022-08-07] MEDS: Levothyroxine Sodium 25 MCG TAB PO SCH (06:10)
[2022-08-07] MEDS: Enoxaparin Sodium 40 MG/0.4 ML SYRINGE SC SCH (09:04)
[2022-08-07] MEDS: Furosemide 40 MG TAB PO SCH (09:05)
[2022-08-07] MEDS: Aspirin 81 mg Enteric Coated Tablet PO SCH (09:05)
[2022-08-07] MEDS: Atorvastatin Calcium 40 MG TAB PO SCH (20:33)
[2022-08-08 05:06] LABS: #Eosinphils 0.3 thou/uL (0.0-0.7); #Lymphocytes 2.9 thou/uL (1.20-3.40); #Monocytes 0.4 thou/uL (0.11-0.59); %Basophils 0.4 % (0.0-1.0); %Eosinophils 4.8 % (0.0-10.0); %Lymphocytes 43.3 % (21.0-51.0); %Monocytes 6.6 % (0.0-10.0); %Neutrophils 44.8 % (42.0-75.0); Hemoglobin 12.2 g/dL (14.0-18.0); Mean Corpuscular Volume 96.8 fl (78.0-98.0); Mean Platelet Volume 7.4 fL (7.4-10.4); Platelet Count 193 10x3/uL (130-400); RBC Distribution Width 12.8 % (11.5-14.5); Red Blood Cell (RBC) Count 3.81 mill/uL (4.70-6.10); White Blood Cell (WBC) Count 6.6 10x3/uL (4.8-10.8)
[2022-08-08] MEDS: Levothyroxine Sodium 25 MCG TAB PO SCH (05:21)
[2022-08-08 05:28] LABS: Anion Gap 11 mmol/L (10-20); BUN (Urea Nitrogen) 17 mg/dL (8.4-25.7); Calc. Creatinine Clearance 134 mL/min (70-130); Calcium 9.8 mg/dL (7.8-10.44); Carbon Dioxide 25 mmol/L (22-29); Chloride 105 mmol/L (98-107); Estimated GFR 93; Glucose 83 mg/dL (70-105); Potassium 3.8 mmol/L (3.5-5.1); Sodium 137 mmol/L (136-145)
[2022-08-08] MEDS: Furosemide 40 MG TAB PO SCH (08:44)
[2022-08-08] MEDS: Aspirin 81 mg Enteric Coated Tablet PO SCH (08:45)
[2022-08-08] MEDS ORDERED: Ketamine 50 MG/ML (10ML VIAL) ONE (15:21)
[2022-08-08] MEDS ORDERED: Dexmedetomidine 200 MCG/2 ML VIAL ONE (15:21)
[2022-08-08] MEDS ORDERED: Gentamicin 80 MG/2 ML VIAL ONE (15:22)
[2022-08-08] MEDS ORDERED: CEFAZOLIN 1 GM VIAL ONE (15:22)
[2022-08-08] MEDS ORDERED: FENTANYL 50 MCG/ML 1 ML VIAL ONE ×2 (15:34→19:08)
[2022-08-08] MEDS ORDERED: Midazolam HCl 2 mg/2 ml Vial ONE (15:34)
[2022-08-08] MEDS ORDERED: Ondansetron PF 4 MG/2 ML Vial ONE (16:07)
[2022-08-08] MEDS ORDERED: Glycopyrrolate 0.2 MG/ML 5 ML SYRINGE ONE (16:07)
[2022-08-08] MEDS ORDERED: ePHEDrine 50 MG/ML VIAL ONE (16:07)
[2022-08-08] MEDS ORDERED: Ondansetron HCl/PF 4 MG/2 ML Vial IVP PRN (17:50)
[2022-08-08] MEDS ORDERED: Acetaminophen/Codeine 30-300mg Tablet ONE (18:43)
[2022-08-08] MEDS ORDERED: Acetaminophen/Codeine 30-300mg Tablet PO PRN (18:45)
[2022-08-08] MEDS: Cephalexin 250 MG CAP PO SCH (21:42)
[2022-08-08] MEDS: Atorvastatin Calcium 40 MG TAB PO SCH (21:42)
[2022-08-08] MEDS: Acetaminophen/Codeine 30-300mg Tablet PO PRN (21:43)
[2022-08-09] MEDS: Levothyroxine Sodium 25 MCG TAB PO SCH (05:56)
[2022-08-09] MEDS: Acetaminophen/Codeine 30-300mg Tablet PO PRN (06:41)
[2022-08-09] MEDS: Furosemide 40 MG TAB PO SCH (09:45)
[2022-08-09] MEDS: Aspirin 81 mg Enteric Coated Tablet PO SCH (09:45)
[2022-08-09] MEDS: Cephalexin 250 MG CAP PO SCH (09:45)
[2022-08-09 12:13] VITALS: BP 109/66; TEMP 97.2
== END 2022-08-09 12:20 | disposition home or self-care (01) | DRG 226 ==
LOC: ERS 13:27 → ERHOLD 14:49 → 2NO 20:26
PROVIDERS: ADMIT Family Medicine; ATTEND Hospitalist
PROC: 0JH608Z Insertion of Defibrillator Generator into Chest Subcutaneous Tissue and Fascia, Open Approach (ICD-10-PCS; principal; 2022-08-08)
PROC: 02H60KZ Insertion of Defibrillator Lead into Right Atrium, Open Approach (ICD-10-PCS; 2022-08-08)
PROC: 02HK0KZ Insertion of Defibrillator Lead into Right Ventricle, Open Approach (ICD-10-PCS; 2022-08-08)
DX: I47.20 Ventricular tachycardia, unspecified (principal); I21.A1 Myocardial infarction type 2; I50.22 Chronic systolic (congestive) heart failure; I42.8 Other cardiomyopathies; Z20.822 Contact with and (suspected) exposure to COVID-19; I11.0 Hypertensive heart disease with heart failure; E03.9 Hypothyroidism, unspecified; E78.00 Pure hypercholesterolemia, unspecified; I45.10 Unspecified right bundle-branch block; E66.9 Obesity, unspecified; Z90.09 Acquired absence of other part of head and neck; Z87.891 Personal history of nicotine dependence; Z79.890 Hormone replacement therapy; Z79.899 Other long term (current) drug therapy; Z79.82 Long term (current) use of aspirin; Z68.35 Body mass index [BMI] 35.0-35.9, adult
CPT/HCPCS: 33249; 36415; 71045; 80048; 80053; 82553; 83735; 83880; 84100; 84484; 85025; 93005; 93306; 93641; C1763; J0690; J1580; J1650; J2250; J2405; J3010; J3475; J3490; U0003; U0005

== ENCOUNTER 2025-05-08 06:27 | Inpatient (IN) | payer BC ==
[2025-05-08 07:36] LABS: #Basophils 0.04 10x3/uL (0.0-0.2); #Eosinophils 0.28 10x3/uL (0.0-0.7); #Monocytes 0.44 10x3/uL (0.11-0.59); #Neutrophils 2.18 10x3/uL (1.40-6.50); %Basophils 0.8 % (0.0-1.0); %Eosinophils 5.4 % (0.0-10.0); %Lymphocytes 43.6 % (21.0-51.0); %Monocytes 8.4 % (0.0-10.0); %Neutrophils 41.6 % (42.0-75.0); Hematocrit 35.8 % (42.0-52.0); Hemoglobin 12.0 g/dL (14.0-18.0); Mean Corpuscular Hemoglobin 30.8 pg (27.0-31.0); Mean Corpuscular Volume 91.8 fL (78.0-98.0); Platelet Count 198 10x3/uL (130-400); Red Blood Cell (RBC) Count 3.90 mill/uL (4.70-6.10); White Blood Cell (WBC) Count 5.23 10x3/uL (4.8-10.8)
[2025-05-08 07:46] LABS: ALT (SGPT) 8 U/L (Less than 45); AST (SGOT) 22 U/L (11-34); Albumin 3.5 g/dL (3.1-4.5); Alkaline Phosphatase 70 U/L (40-110); Anion Gap 11 mmol/L (10-20); BUN (Urea Nitrogen) 22 mg/dL (8.4-25.7); Bilirubin, Total 0.6 mg/dL (0.3-1.2); Calc. Creatinine Clearance 0 mL/min (70-130); Calcium 10.3 mg/dL (7.8-10.44); Carbon Dioxide 25 mmol/L (23-31); Chloride 106 mmol/L (98-107); Globulin 2.8 g/dL (2.4-3.5); Glucose 106 mg/dL (80-115); Potassium 4.3 mmol/L (3.5-5.1); Sodium 138 mmol/L (136-145)
[2025-05-08] MEDS ORDERED: Acetaminophen 500 MG TAB ONE (07:57)
[2025-05-08 10:33] LABS: Magnesium 2.1 mg/dL (1.6-2.6)
[2025-05-08 16:23] VITALS: BMI 33.8
[2025-05-08] MEDS ORDERED: Communication Order-Pharmacy FS SCH (17:15)
[2025-05-08] MEDS: Aspirin Chewable 81 MG TAB PO SCH (17:58)
[2025-05-08] MEDS: Sacubitril 24MG/Valsartan 26 MG TAB PO SCH (21:16)
[2025-05-08] MEDS: Famotidine 20 MG TAB PO SCH (21:16)
[2025-05-09 04:42] LABS: #Basophils 0.03 10x3/uL (0.0-0.2); #Eosinophils 0.26 10x3/uL (0.0-0.7); #Monocytes 0.45 10x3/uL (0.11-0.59); #Neutrophils 2.31 10x3/uL (1.40-6.50); %Basophils 0.6 % (0.0-1.0); %Eosinophils 5.5 % (0.0-10.0); %Lymphocytes 35.4 % (21.0-51.0); %Monocytes 9.5 % (0.0-10.0); %Neutrophils 48.8 % (42.0-75.0); Hematocrit 36.0 % (42.0-52.0); Hemoglobin 12.4 g/dL (14.0-18.0); Mean Corpuscular Hemoglobin 31.4 pg (27.0-31.0); Mean Corpuscular Volume 91.1 fL (78.0-98.0); Platelet Count 195 10x3/uL (130-400); Red Blood Cell (RBC) Count 3.95 mill/uL (4.70-6.10); White Blood Cell (WBC) Count 4.74 10x3/uL (4.8-10.8)
[2025-05-09] MEDS ORDERED: Enoxaparin 40 MG (0.4 mL) SYRINGE SC SCH (09:00)
[2025-05-09] MEDS ORDERED: Aspirin Chewable 81 MG TAB PO SCH (09:00)
[2025-05-09] MEDS: Aspirin Chewable 81 MG TAB PO SCH (13:16)
[2025-05-09] MEDS: Furosemide 20 MG TAB PO SCH (13:16)
[2025-05-09] MEDS: Isosorbide Mononitrate 60 MG ER.TAB PO SCH (13:17)
[2025-05-09] MEDS ORDERED: Nitroglycerin 50 MG/250 ML BOT 250 ML ONE (13:43)
[2025-05-09] MEDS ORDERED: EPINEPHrine 1 MG/10 ML Abboject SYRINGE ONE (15:40)
[2025-05-09] MEDS ORDERED: Adenosine 6 mg (2 mL) VIAL ONE (15:40)
[2025-05-09] MEDS ORDERED: Lidocaine 1% (PF) 30 ML VIAL ONE (15:41)
[2025-05-09] MEDS ORDERED: PHENYLEPHRINE-NS 100 MCG/ML 10 ML SYRINGE ONE (15:41)
[2025-05-09] MEDS ORDERED: Heparin 10,000 UNITS/ 10 ML VIAL ONE (15:41)
[2025-05-09] MEDS: Methocarbamol 500 MG TAB PO SCH (19:42)
[2025-05-10 04:43] LABS: #Basophils 0.03 10x3/uL (0.0-0.2); #Eosinophils 0.30 10x3/uL (0.0-0.7); #Monocytes 0.43 10x3/uL (0.11-0.59); #Neutrophils 2.67 10x3/uL (1.40-6.50); %Basophils 0.6 % (0.0-1.0); %Eosinophils 5.5 % (0.0-10.0); %Lymphocytes 36.5 % (21.0-51.0); %Monocytes 7.9 % (0.0-10.0); %Neutrophils 49.3 % (42.0-75.0); Hematocrit 37.4 % (42.0-52.0); Hemoglobin 12.4 g/dL (14.0-18.0); Mean Corpuscular Hemoglobin 30.7 pg (27.0-31.0); Mean Corpuscular Volume 92.6 fL (78.0-98.0); Platelet Count 204 10x3/uL (130-400); Red Blood Cell (RBC) Count 4.04 mill/uL (4.70-6.10); White Blood Cell (WBC) Count 5.42 10x3/uL (4.8-10.8)
[2025-05-10 05:05] LABS: Anion Gap 11 mmol/L (10-20); BUN (Urea Nitrogen) 19 mg/dL (8.4-25.7); Calc. Creatinine Clearance 121 mL/min (70-130); Calcium 9.9 mg/dL (7.8-10.44); Carbon Dioxide 23 mmol/L (23-31); Chloride 105 mmol/L (98-107); Glucose 102 mg/dL (80-115); Potassium 3.8 mmol/L (3.5-5.1); Sodium 135 mmol/L (136-145)
[2025-05-10] MEDS: Senokot S 8.6-50 MG TAB PO PRN (06:01)
[2025-05-10] MEDS: Enoxaparin 100 MG (1 mL) SYRINGE SC SCH (10:40)
[2025-05-10] MEDS ORDERED: Nitroglycerin 0.4 MG TAB (25 Tab Bottle) SL PRN (11:51)
[2025-05-10] MEDS: Amiodarone 200 MG TAB PO SCH (22:37)
[2025-05-11 04:48] LABS: #Basophils 0.04 10x3/uL (0.0-0.2); #Eosinophils 0.39 10x3/uL (0.0-0.7); #Monocytes 0.51 10x3/uL (0.11-0.59); #Neutrophils 2.64 10x3/uL (1.40-6.50); %Basophils 0.7 % (0.0-1.0); %Eosinophils 6.7 % (0.0-10.0); %Lymphocytes 38.3 % (21.0-51.0); %Monocytes 8.7 % (0.0-10.0); %Neutrophils 45.3 % (42.0-75.0); Hematocrit 32.2 % (42.0-52.0); Hemoglobin 10.8 g/dL (14.0-18.0); Mean Corpuscular Hemoglobin 31.1 pg (27.0-31.0); Mean Corpuscular Volume 92.8 fL (78.0-98.0); Platelet Count 186 10x3/uL (130-400); Red Blood Cell (RBC) Count 3.47 mill/uL (4.70-6.10); White Blood Cell (WBC) Count 5.83 10x3/uL (4.8-10.8)
[2025-05-11 04:59] LABS: Anion Gap 12 mmol/L (10-20); BUN (Urea Nitrogen) 17 mg/dL (8.4-25.7); Calc. Creatinine Clearance 108 mL/min (70-130); Calcium 9.5 mg/dL (7.8-10.44); Carbon Dioxide 21 mmol/L (23-31); Chloride 104 mmol/L (98-107); Glucose 131 mg/dL (80-115); Potassium 3.8 mmol/L (3.5-5.1); Sodium 133 mmol/L (136-145)
[2025-05-12 05:08] LABS: #Basophils Less than 0.03 10x3/uL (0.0-0.2); #Eosinophils 0.41 10x3/uL (0.0-0.7); #Monocytes 0.54 10x3/uL (0.11-0.59); #Neutrophils 2.44 10x3/uL (1.40-6.50); %Basophils 0.4 % (0.0-1.0); %Eosinophils 7.4 % (0.0-10.0); %Lymphocytes 38.2 % (21.0-51.0); %Monocytes 9.8 % (0.0-10.0); %Neutrophils 44.0 % (42.0-75.0); Hematocrit 36.1 % (42.0-52.0); Hemoglobin 12.6 g/dL (14.0-18.0); Mean Corpuscular Hemoglobin 31.3 pg (27.0-31.0); Mean Corpuscular Volume 89.6 fL (78.0-98.0); Platelet Count 160 10x3/uL (130-400); Red Blood Cell (RBC) Count 4.03 mill/uL (4.70-6.10); White Blood Cell (WBC) Count 5.53 10x3/uL (4.8-10.8)
[2025-05-12 05:12] LABS: Anion Gap 14 mmol/L (10-20); BUN (Urea Nitrogen) 15 mg/dL (8.4-25.7); Calc. Creatinine Clearance 106 mL/min (70-130); Calcium 9.8 mg/dL (7.8-10.44); Carbon Dioxide 22 mmol/L (23-31); Chloride 102 mmol/L (98-107); Glucose 86 mg/dL (80-115); Potassium 4.2 mmol/L (3.5-5.1); Sodium 134 mmol/L (136-145)
[2025-05-12] MEDS: Lactulose 20 GM (30 mL) UDCUP PO SCH (05:42)
[2025-05-12] MEDS: Nitroglycerin 0.6mg/Hour PATCH TD SCH (11:29)
[2025-05-12] MEDS ORDERED: [UNRECOGNIZED DRUG - OTHER] TOP SCH (21:00)
[2025-05-13 04:53] LABS: #Basophils 0.03 10x3/uL (0.0-0.2); #Eosinophils 0.42 10x3/uL (0.0-0.7); #Monocytes 0.64 10x3/uL (0.11-0.59); #Neutrophils 2.75 10x3/uL (1.40-6.50); %Basophils 0.6 % (0.0-1.0); %Eosinophils 7.8 % (0.0-10.0); %Lymphocytes 28.3 % (21.0-51.0); %Monocytes 11.9 % (0.0-10.0); %Neutrophils 51.0 % (42.0-75.0); Hematocrit 31.8 % (42.0-52.0); Hemoglobin 10.8 g/dL (14.0-18.0); Mean Corpuscular Hemoglobin 31.0 pg (27.0-31.0); Mean Corpuscular Volume 91.4 fL (78.0-98.0); Platelet Count 183 10x3/uL (130-400); Red Blood Cell (RBC) Count 3.48 mill/uL (4.70-6.10); White Blood Cell (WBC) Count 5.38 10x3/uL (4.8-10.8)
[2025-05-13 05:05] LABS: Anion Gap 12 mmol/L (10-20); BUN (Urea Nitrogen) 18 mg/dL (8.4-25.7); Calc. Creatinine Clearance 98 mL/min (70-130); Calcium 9.4 mg/dL (7.8-10.44); Carbon Dioxide 23 mmol/L (23-31); Chloride 102 mmol/L (98-107); Glucose 99 mg/dL (80-115); Potassium 4.1 mmol/L (3.5-5.1); Sodium 133 mmol/L (136-145)
[2025-05-13] MEDS: [UNRECOGNIZED DRUG - REMARK] TOP SCH (05:29)
[2025-05-13] MEDS: Pantoprazole 40 MG VIAL IVP SCH (15:01)
[2025-05-13] MEDS: Nitroglycerin 0.6mg/Hour PATCH TD SCH (17:28)
[2025-05-14 04:52] LABS: #Basophils 0.03 10x3/uL (0.0-0.2); #Eosinophils 0.42 10x3/uL (0.0-0.7); #Monocytes 0.57 10x3/uL (0.11-0.59); #Neutrophils 2.71 10x3/uL (1.40-6.50); %Basophils 0.6 % (0.0-1.0); %Eosinophils 7.8 % (0.0-10.0); %Lymphocytes 30.2 % (21.0-51.0); %Monocytes 10.6 % (0.0-10.0); %Neutrophils 50.4 % (42.0-75.0); Hematocrit 31.9 % (42.0-52.0); Hemoglobin 10.8 g/dL (14.0-18.0); Mean Corpuscular Hemoglobin 30.9 pg (27.0-31.0); Mean Corpuscular Volume 91.4 fL (78.0-98.0); Platelet Count 190 10x3/uL (130-400); Red Blood Cell (RBC) Count 3.49 mill/uL (4.70-6.10); White Blood Cell (WBC) Count 5.37 10x3/uL (4.8-10.8)
[2025-05-14 05:18] LABS: Anion Gap 12 mmol/L (10-20); BUN (Urea Nitrogen) 15 mg/dL (8.4-25.7); Calc. Creatinine Clearance 89 mL/min (70-130); Calcium 9.6 mg/dL (7.8-10.44); Carbon Dioxide 23 mmol/L (23-31); Chloride 101 mmol/L (98-107); Glucose 97 mg/dL (80-115); Potassium 3.9 mmol/L (3.5-5.1); Sodium 132 mmol/L (136-145)
[2025-05-14] MEDS: Pantoprazole 40 MG VIAL IVP SCH (10:16)
[2025-05-14] MEDS: Ondansetron PF 4 MG/2 ML Vial IVP PRN (10:16)
[2025-05-14] MEDS: Melatonin 3 MG TAB PO PRN (20:49)
[2025-05-15 04:56] LABS: #Basophils Less than 0.03 10x3/uL (0.0-0.2); #Eosinophils 0.38 10x3/uL (0.0-0.7); #Monocytes 0.50 10x3/uL (0.11-0.59); #Neutrophils 1.85 10x3/uL (1.40-6.50); %Basophils 0.4 % (0.0-1.0); %Eosinophils 8.5 % (0.0-10.0); %Lymphocytes 38.4 % (21.0-51.0); %Monocytes 11.2 % (0.0-10.0); %Neutrophils 41.3 % (42.0-75.0); Hematocrit 31.1 % (42.0-52.0); Hemoglobin 10.9 g/dL (14.0-18.0); Mean Corpuscular Hemoglobin 31.5 pg (27.0-31.0); Mean Corpuscular Volume 89.9 fL (78.0-98.0); Platelet Count 188 10x3/uL (130-400); Red Blood Cell (RBC) Count 3.46 mill/uL (4.70-6.10); White Blood Cell (WBC) Count 4.48 10x3/uL (4.8-10.8)
[2025-05-15 05:14] LABS: Anion Gap 11 mmol/L (10-20); BUN (Urea Nitrogen) 13 mg/dL (8.4-25.7); Calc. Creatinine Clearance 98 mL/min (70-130); Calcium 9.5 mg/dL (7.8-10.44); Carbon Dioxide 25 mmol/L (23-31); Chloride 101 mmol/L (98-107); Glucose 90 mg/dL (80-115); Potassium 3.8 mmol/L (3.5-5.1); Sodium 133 mmol/L (136-145)
[2025-05-15] MEDS: Ondansetron PF 4 MG/2 ML Vial IVP PRN (11:21)
[2025-05-15] MEDS: Amiodarone 200 MG TAB PO SCH (21:47)
[2025-05-15] MEDS: Acetaminophen 325 MG TAB PO PRN (21:47)
[2025-05-15] MEDS: Apixaban 5 MG TAB PO SCH (21:48)
[2025-05-16 05:38] LABS: Anion Gap 12 mmol/L (10-20); BUN (Urea Nitrogen) 10 mg/dL (8.4-25.7); Calc. Creatinine Clearance 102 mL/min (70-130); Calcium 9.7 mg/dL (7.8-10.44); Carbon Dioxide 25 mmol/L (23-31); Chloride 100 mmol/L (98-107); Glucose 84 mg/dL (80-115); Magnesium 1.8 mg/dL (1.6-2.6); Potassium 3.9 mmol/L (3.5-5.1); Sodium 133 mmol/L (136-145)
[2025-05-16 12:55] VITALS: BMI 34.2
[2025-05-16 16:13] VITALS: BP 98/56; TEMP 98
== END 2025-05-16 18:35 | disposition home or self-care (01) | DRG 281 ==
LOC: ERS 06:27 → 2NO 12:10
PROVIDERS: ADMIT Internal Medicine; ATTEND Hospitalist
PROC: 4A023N7 Measurement of Cardiac Sampling and Pressure, Left Heart, Percutaneous Approach (ICD-10-PCS; principal; 2025-05-09)
PROC: B2111ZZ Fluoroscopy of Multiple Coronary Arteries using Low Osmolar Contrast (ICD-10-PCS; 2025-05-09)
PROC: B2151ZZ Fluoroscopy of Left Heart using Low Osmolar Contrast (ICD-10-PCS; 2025-05-09)
PROC: 3E033XZ Introduction of Vasopressor into Peripheral Vein, Percutaneous Approach (ICD-10-PCS; 2025-05-09)
DX: I47.29 Other ventricular tachycardia (principal); I42.9 Cardiomyopathy, unspecified; I21.A1 Myocardial infarction type 2; Z68.41 Body mass index [BMI] 40.0-44.9, adult; I50.22 Chronic systolic (congestive) heart failure; I47.0 Re-entry ventricular arrhythmia; I11.0 Hypertensive heart disease with heart failure; I25.10 Atherosclerotic heart disease of native coronary artery without angina pectoris; E78.00 Pure hypercholesterolemia, unspecified; D64.9 Anemia, unspecified; I49.01 Ventricular fibrillation; M25.512 Pain in left shoulder; I95.9 Hypotension, unspecified; I73.9 Peripheral vascular disease, unspecified; E66.01 Morbid (severe) obesity due to excess calories; E03.9 Hypothyroidism, unspecified; Z86.73 Personal history of transient ischemic attack (TIA), and cerebral infarction without residual deficits; Z79.01 Long term (current) use of anticoagulants; Z88.1 Allergy status to other antibiotic agents; Z95.810 Presence of automatic (implantable) cardiac defibrillator; Z98.890 Other specified postprocedural states; Z82.49 Family history of ischemic heart disease and other diseases of the circulatory system; Z87.891 Personal history of nicotine dependence; Z79.899 Other long term (current) drug therapy; Z79.890 Hormone replacement therapy; Z79.82 Long term (current) use of aspirin
CPT/HCPCS: 36415; 71045; 76882; 80048; 80053; 83735; 84443; 84484; 85025; 93005; 93010; 93306; 93458; 93798; 94760; 99152; 99153; J0153; J0165; J0282; J0461; J1644; J1650; J2250; J2470; J7030; J7070